=== PATIENT | female | born 1955 | race Caucasian/White ===

== ENCOUNTER → 2020-03-04 10:07 | Outpatient (BNVA) | payer MEDICARE, MEDICAID, SELFPAY | PROVIDERS: PCP Internal Medicine; Visit Provider Anesthesiology | DX: G89.4 Chronic pain syndrome (principal); M47.816 Spondylosis without myelopathy or radiculopathy, lumbar region; M25.562 Pain in left knee; M17.11 Unilateral primary osteoarthritis, right knee; Z96.652 Presence of left artificial knee joint; Z79.891 Long term (current) use of opiate analgesic | CPT/HCPCS: 99213 ==

== ENCOUNTER → 2020-03-31 10:41 | Outpatient (BNVA) | payer MEDICARE, MEDICAID, SELFPAY | PROVIDERS: PCP Internal Medicine; Visit Provider Anesthesiology | DX: G89.4 Chronic pain syndrome (principal); M47.816 Spondylosis without myelopathy or radiculopathy, lumbar region; M25.562 Pain in left knee; Z79.891 Long term (current) use of opiate analgesic; Z96.652 Presence of left artificial knee joint | CPT/HCPCS: 99212 ==

== ENCOUNTER → 2020-04-29 14:56 | Outpatient (BNVA) | payer MEDICARE, MEDICAID, SELFPAY | PROVIDERS: PCP Internal Medicine; Visit Provider Anesthesiology | DX: F11.90 Opioid use, unspecified, uncomplicated (principal); M25.562 Pain in left knee; M47.816 Spondylosis without myelopathy or radiculopathy, lumbar region; G89.4 Chronic pain syndrome; M17.11 Unilateral primary osteoarthritis, right knee; G56.32 Lesion of radial nerve, left upper limb; G56.31 Lesion of radial nerve, right upper limb; Z96.652 Presence of left artificial knee joint; Z79.899 Other long term (current) drug therapy | CPT/HCPCS: 99212 ==

== ENCOUNTER → 2020-06-01 10:09 | Outpatient (BNVA) | payer MEDICARE, MEDICAID, SELFPAY | PROVIDERS: PCP Internal Medicine; Visit Provider Family Medicine Adult Medicine | DX: M17.11 Unilateral primary osteoarthritis, right knee (principal); M47.816 Spondylosis without myelopathy or radiculopathy, lumbar region; Z96.652 Presence of left artificial knee joint | CPT/HCPCS: 99212 ==

== ENCOUNTER → 2020-06-03 15:06 | Outpatient (BNVA) | payer MEDICARE, MEDICAID, SELFPAY | PROVIDERS: PCP Internal Medicine; Visit Provider Anesthesiology | DX: M25.562 Pain in left knee (principal); M17.11 Unilateral primary osteoarthritis, right knee; M47.816 Spondylosis without myelopathy or radiculopathy, lumbar region; G89.4 Chronic pain syndrome; F11.90 Opioid use, unspecified, uncomplicated; Z96.652 Presence of left artificial knee joint | CPT/HCPCS: Q3014 ==

== ENCOUNTER → 2020-06-07 08:22 | Outpatient (BNVA) | payer MEDICARE, MEDICAID, SELFPAY | PROVIDERS: PCP Internal Medicine; Visit Provider Anesthesiology | DX: M17.11 Unilateral primary osteoarthritis, right knee (principal); M47.816 Spondylosis without myelopathy or radiculopathy, lumbar region; M25.562 Pain in left knee; G89.4 Chronic pain syndrome; F11.90 Opioid use, unspecified, uncomplicated; Z96.652 Presence of left artificial knee joint | CPT/HCPCS: Q3014 ==

== ENCOUNTER 2020-06-08 06:14 | Outpatient (REF) | payer MEDICARE, MEDICAID, SELFPAY | END 2020-06-08 06:15 | disposition home or self-care (01) | LOC: HO.RADIR 06:14 | PROVIDERS: Visit Provider Anesthesiology | DX: M25.562 Pain in left knee (principal); M17.11 Unilateral primary osteoarthritis, right knee; M47.816 Spondylosis without myelopathy or radiculopathy, lumbar region; G89.4 Chronic pain syndrome; F11.90 Opioid use, unspecified, uncomplicated; Z96.652 Presence of left artificial knee joint; Z87.891 Personal history of nicotine dependence | CPT/HCPCS: 64447 ==

== ENCOUNTER → 2020-06-14 15:52 | Outpatient (BNVA) | payer MEDICARE, MEDICAID, SELFPAY | PROVIDERS: PCP Internal Medicine; Visit Provider Anesthesiology | DX: M25.562 Pain in left knee (principal); M47.816 Spondylosis without myelopathy or radiculopathy, lumbar region; M17.11 Unilateral primary osteoarthritis, right knee; G89.4 Chronic pain syndrome; F11.90 Opioid use, unspecified, uncomplicated; Z96.652 Presence of left artificial knee joint | CPT/HCPCS: Q3014 ==

== ENCOUNTER 2020-06-29 12:55 | Outpatient (RCR) | payer MEDICARE, MEDICAID, SELFPAY | END 2020-06-30 08:59 | disposition home or self-care (01) | LOC: HO.PAOS 12:55 | PROVIDERS: Visit Provider Counselor Mental Health | DX: F43.20 Adjustment disorder, unspecified (principal) | CPT/HCPCS: 90791 ==

== ENCOUNTER → 2020-07-01 10:41 | Outpatient (BNVA) | payer MEDICARE, MEDICAID, SELFPAY | PROVIDERS: PCP Internal Medicine; Visit Provider Anesthesiology | DX: G89.4 Chronic pain syndrome (principal); M47.816 Spondylosis without myelopathy or radiculopathy, lumbar region; M17.11 Unilateral primary osteoarthritis, right knee; M25.562 Pain in left knee; Z79.891 Long term (current) use of opiate analgesic; Z96.652 Presence of left artificial knee joint | CPT/HCPCS: 99212 ==

== ENCOUNTER → 2020-07-29 16:01 | Outpatient (BNVA) | payer MEDICARE, MEDICAID, SELFPAY | PROVIDERS: PCP Internal Medicine; Visit Provider Anesthesiology | DX: M25.562 Pain in left knee (principal); M47.816 Spondylosis without myelopathy or radiculopathy, lumbar region; G89.4 Chronic pain syndrome; M17.11 Unilateral primary osteoarthritis, right knee; F11.90 Opioid use, unspecified, uncomplicated; Z96.652 Presence of left artificial knee joint; Z79.899 Other long term (current) drug therapy | CPT/HCPCS: 99212 ==

== ENCOUNTER 2020-08-06 10:52 | Day surgery (SDC) | payer MEDICARE, MEDICAID, SELFPAY ==
[2020-08-03 10:10] VITALS: BMI 27.9
--- NOTE | 2020-08-05 10:55 | HO.ANESPROP2 ---
Documented by User: Jennifer Jerez 08/05/20 10:56 HPI - Anesthesia Eval Consult details Narrative: 64yo F for Femoral Nerve Stimulator Trial Asthma exac 07/2020 with prednisone taper finishing 08/02/20 [facility] Active Problems Active Problems: All Active Problems (Updated 08/03/20 @ 10:07 by Irma Hoskins) Radial tunnel syndrome of right upper extremity (Acute) Radial tunnel syndrome of left upper extremity (Acute) Chronic, continuous use of opioids (Acute) Osteoarthritis of right knee (Acute) Chronic pain syndrome (Acute) Spondylosis of lumbar region without myelopathy or radiculopathy (Acute) Pain in left knee (Acute) Status post total knee replacement, left (Acute) Past Medical History Medical History Asthma Chronic pain syndrome Chronic, continuous use of opioids Depression Elevated cholesterol GERD (gastroesophageal reflux disease) Osteoarthritis of right knee Pain in left knee Radial tunnel syndrome of left upper extremity Radial tunnel syndrome of right upper extremity Spondylosis of lumbar region without myelopathy or radiculopathy Surgical History Surgical History History of carpal tunnel surgery Status post total knee replacement, left Social History Social History Household Members: Family Alcohol intake: never Smoking Status: Former smoker Smoking Quit Date: 07/2019 Use of substances other than those prescribed or required for medical reasons: No Advance Directives: No Advance Directives Information Provided: No Advance Directives on File: No Current occupation: Disabled about 5 years due to musculoskeletal pain Meds Allergies Allergy/AdvReac Type Severity Reaction Status Date / Time No Known Allergies Allergy Verified 08/03/20 10:07 Home Medications Medication Instructions Recorded Confirmed Last Taken Type albuterol sulfate 90 mcg/actuation 2 puff PO Q4-6H PRN 03/04/20 08/02/20 08/06/20 History aerosol inhaler montelukast 10 mg tablet 10 mg PO BEDTIME 03/04/20 08/02/20 Unknown History omeprazole 20 mg capsule,delayed 20 mg PO DAILY 03/04/20 08/02/20 08/06/20 History release pravastatin 40 mg tablet 40 mg PO BEDTIME 03/04/20 08/02/20 Unknown History metoprolol tartrate 1 tab PO BID 08/02/20 08/02/20 08/06/20 History nifedipine 1 tab PO DAILY 08/02/20 08/02/20 08/06/20 History fluticasone furoate-vilanterol 1 puff PO DAILY 08/03/20 08/03/20 Unknown History [Breo Ellipta] umeclidinium [Incruse Ellipta] 1 puff PO DAILY 08/03/20 08/03/20 Unknown History Exam Exam Date and Time: August 05, 2020 1055 Height,Weight and Vital Signs: Height 5 ft 1 in Weight 67.132 kg Assessment and Plan Assessment Anesthesia Assessment: Chart Reviewed Documented by User: Chato Santos MD 08/06/20 13:01 [facility] Past Medical History Medical History Asthma Chronic pain syndrome Chronic, continuous use of opioids Depression Elevated cholesterol GERD (gastroesophageal reflux disease) Osteoarthritis of right knee Pain in left knee Radial tunnel syndrome of left upper extremity Radial tunnel syndrome of right upper extremity Spondylosis of lumbar region without myelopathy or radiculopathy Surgical History Surgical History History of carpal tunnel surgery Status post total knee replacement, left Social History Social History Household Members: Family Alcohol intake: never Smoking Status: Former smoker Smoking Quit Date: 07/2019 Use of substances other than those prescribed or required for medical reasons: No Advance Directives: No Advance Directives Information Provided: No Advance Directives on File: No Current occupation: Disabled about 5 years due to musculoskeletal pain Meds Allergies Allergy/AdvReac Type Severity Reaction Status Date / Time No Known Allergies Allergy Verified 08/03/20 10:07 Home Medications Medication Instructions Recorded Confirmed Last Taken Type albuterol sulfate 90 mcg/actuation 2 puff PO Q4-6H PRN 03/04/20 08/02/20 08/06/20 History aerosol inhaler montelukast 10 mg tablet 10 mg PO BEDTIME 03/04/20 08/02/20 Unknown History omeprazole 20 mg capsule,delayed 20 mg PO DAILY 03/04/20 08/02/20 08/06/20 History release pravastatin 40 mg tablet 40 mg PO BEDTIME 03/04/20 08/02/20 Unknown History metoprolol tartrate 1 tab PO BID 08/02/20 08/02/20 08/06/20 History nifedipine 1 tab PO DAILY 08/02/20 08/02/20 08/06/20 History fluticasone furoate-vilanterol 1 puff PO DAILY 08/03/20 08/03/20 Unknown History [Breo Ellipta] umeclidinium [Incruse Ellipta] 1 puff PO DAILY 08/03/20 08/03/20 Unknown History Assessment and Plan Assessment Anesthesia Assessment: Anesthesia Plan Discussed and Chart Reviewed Final Anesthetic Review NPO: Yes ASA Class: III Final Preanesthetic Review: No Changes in Pt Med Stat, Meds/Allgs Chart Reviewed, Consent Obtained/Reviewed and Anes Risks/Benef Reviewed Patient Risk: High Procedure Risk: Low Anesthetic Plan Anesthetic Plan: MAC: Disposition: Standard PACU
[2020-08-06 11:17] VITALS: BP 139/72; PULSE 83; RESP 16; TEMP 36.9; O2SAT 97
[2020-08-06] MEDS: Lactated Ringers 1,000 ML 100 ML IVCONT (11:31)
--- NOTE | 2020-08-06 13:01 | MHC.SHP ---
Pre-Procedural Eval Section A The patient is an INPATIENT: No Changes since office visit: Yes Patient answered all questions The History & Physical has been completed within 30 days and I have reviewed it.: No Section B Chief Complaint: Pain in Left Knee Details of Present Illness: Left knee osteoarthritis Relevant Family History (Specify if Yes): No Relevant Social History: None Present Medications: see Short Stay Collaborative assessment Medical History: Significant History History of Previous Operations: No relevant previous surgery Allergies: Allergies Allergy/AdvReac Type Severity Reaction Status Date / Time No Known Allergies Allergy Verified 08/03/20 10:07 Review of Systems Sugical H&P ROS: Negative: Constitution, Cardiovascular, Respiratory, Neurological, Psychiatric, Hem-Onc, Allergic/Immunologic, Gastrointestinal, Genitourinary, Musculoskeletal, Integumentary, Endocrine and Eyes/Ears/Nose/Throat Exam Surgical H&P Exam: Normal: HEENT, Normal: Heart, Normal: Lungs, Normal: Extremities, Normal: Abdomen, Normal: Skin and Normal: Neurological Plan Diagnosis/Plan: Unchanged I have reviewed the history and physical and performed a pertinent physical examination on my patient. No changes have occurred unless specified.
[2020-08-06 13:54] VITALS: BP 149/85; PULSE 90; RESP 20; TEMP 36.2; O2SAT 98
--- NOTE | 2020-08-06 14:04 | PM.OP ---
Brief Operative Note Date of Service: 08/06/20 Pre-op diagnosis: Left knee pain, status post total knee replacement left. Post-op diagnosis: same Procedure: Left femoral nerve stimulation stim wave Implants: None permanent Surgeon: Quan Rae MD Anesthesia: MAC Estimated blood loss (mL): 0 Condition: stable Disposition: PACU
--- NOTE | 2020-08-06 14:08 | PM.OP ---
Brief Operative Note Date of Service: 08/06/20 Pre-op diagnosis: Left knee pain, status post total knee replacement left Post-op diagnosis: same Procedure: Left femoral nerve stimulation trial stim wave Implants: None permanent Surgeon: Quan Rae MD Anesthesia: MAC Estimated blood loss (mL): 0 Condition: stable Disposition: PACU
[2020-08-06 14:09] VITALS: BP 166/85; PULSE 86; RESP 16; TEMP 36.2; O2SAT 98
--- NOTE | 2020-08-06 16:16 | P.OP_ITS ---
Operative Note Operative Note Date of Service: 08/06/20 Narrative: Genie is very pleasant 64 years old female who is suffering from consequences of left total knee replacement with intractable pain in the projection of the left knee. Today she came to the operating room for trial of peripheral nerve-left nerve femoral nerve stimulation stim wave technology in the attempt to alleviate her left knee pain. The informed consent was obtained before procedure delineating the risks of ble eding, epidural hematoma, epidural abscess, other infection, osteomyelitis, damage to the peripheral nerves, risk of paralysis and risk of loss of sensation. After that the patient came to the operating room, SHE was positioned supine on the operating table with elevation of the left hip, [place] [employer] monitors were applied. The patient was sedated. Time-out was performed delineating correct patient's name and date of , site, side of the procedure, need of antibiotics, risk of fire. Before the procedure the patient received 2 GRAMS of cefazolin. The patient's left groin was prepped with ChloraPrep and draped with full body drape. Sterilely draped ultrasound probe was brought on the operating field and picture of femoral artery a and femoral nerve were delineated on the screen. 5 cm below the level of the ultrasound probe in the left groin the local anesthetic lidocaine mixture with bupivacaine was injected into the skin and subcutaneous tissue in the direction to were the femoral nerve. 18 gauge curved introducer needle was inserted through the skin and advanced to the s perpendicular to the ultrasound plain fashion to word the femoral artery and femoral nerve. When the tip of the needle entered the space between femoral artery and femoral nerve the needle stylet was removed and stimulating lead with electrodes array was inserted into the needle and advanced into the for mention position. The stylette of the epidural lead was gently removed from the epidural lead and radio antenna was inserted into the lead until resistance was felt. The testing device was sterilely draped and brought over the operating field. It was positioned on the outside end of the electrode. The area of the skin surrounding the electrode was smeared with Mastisol, and the electrode was fix it to the skin using long Steri-Strips. Upon completion of the procedure sterile dressing was applied to the area of injections, the electrode array and the area of the injections was taped to the skin. The stimulating antenna was applied on top of the area of the dressing to correspond to the financial quantitative analyst electrodes of the wire device. Upon completion of the procedure patient was awaken she was taking outside of the operating room to recovery room where she recovered uneventfully. She went home without immediate complications. In the PACU she was trying the stimulation and she felt stimulating action of the electrode in her femoral nerve. The amplitude of the stimulation was few milliamp tears.
== END 2020-08-06 14:55 | disposition home or self-care (01) ==
PROVIDERS: PCP Internal Medicine; Visit Provider Anesthesiology
PROC: (CPT 64555; principal; 2020-08-06 12:20)
DX: T84.84XA Pain due to internal orthopedic prosthetic devices, implants and grafts, initial encounter (principal); M25.562 Pain in left knee; Z96.652 Presence of left artificial knee joint; Y83.8 Other surgical procedures as the cause of abnormal reaction of the patient, or of later complication, without mention of misadventure at the time of the procedure; Y92.9 Unspecified place or not applicable
CPT/HCPCS: 64555; C1778; J0690

== ENCOUNTER → 2020-08-12 13:44 | Outpatient (BNVA) | payer MEDICARE, MEDICAID, SELFPAY | PROVIDERS: PCP Internal Medicine; Visit Provider Anesthesiology | DX: M25.561 Pain in right knee (principal); Z96.652 Presence of left artificial knee joint; M47.816 Spondylosis without myelopathy or radiculopathy, lumbar region; M17.11 Unilateral primary osteoarthritis, right knee; G89.4 Chronic pain syndrome; F11.90 Opioid use, unspecified, uncomplicated; Z79.899 Other long term (current) drug therapy | CPT/HCPCS: 99212 ==

== ENCOUNTER → 2020-08-30 10:05 | Outpatient (BNVA) | payer MEDICARE, MEDICAID, SELFPAY | PROVIDERS: PCP Internal Medicine; Visit Provider Anesthesiology | DX: M25.562 Pain in left knee (principal); M47.816 Spondylosis without myelopathy or radiculopathy, lumbar region; M17.11 Unilateral primary osteoarthritis, right knee; G89.4 Chronic pain syndrome; F11.90 Opioid use, unspecified, uncomplicated; G90.522 Complex regional pain syndrome I of left lower limb; Z96.652 Presence of left artificial knee joint | CPT/HCPCS: 99212 ==

== ENCOUNTER → 2020-09-27 14:26 | Outpatient (BNVA) | payer MEDICARE, MEDICAID, SELFPAY | PROVIDERS: PCP Internal Medicine; Visit Provider Anesthesiology | DX: M25.562 Pain in left knee (principal); M47.816 Spondylosis without myelopathy or radiculopathy, lumbar region; M17.11 Unilateral primary osteoarthritis, right knee; G89.4 Chronic pain syndrome; F11.90 Opioid use, unspecified, uncomplicated; G90.522 Complex regional pain syndrome I of left lower limb; Z96.652 Presence of left artificial knee joint | CPT/HCPCS: 99212 ==

== ENCOUNTER → 2020-10-27 09:11 | Outpatient (BNVA) | payer MEDICARE, MEDICAID, SELFPAY | PROVIDERS: PCP Internal Medicine; Visit Provider Anesthesiology | DX: M47.816 Spondylosis without myelopathy or radiculopathy, lumbar region (principal); M25.562 Pain in left knee; G89.4 Chronic pain syndrome; M17.11 Unilateral primary osteoarthritis, right knee; F11.90 Opioid use, unspecified, uncomplicated; G90.522 Complex regional pain syndrome I of left lower limb; Z79.899 Other long term (current) drug therapy | CPT/HCPCS: 99212 ==

== ENCOUNTER 2021-04-08 09:05 | Day surgery (SDC) | payer MEDICARE, MEDICAID, SELFPAY ==
[2021-03-31 16:03] VITALS: BMI 27.8
--- NOTE | ~2021-04-08 | FL_ITS ---
EXAMINATION: XR FLUOROSCOPY WITH IMAGES CLINICAL INFORMATION: Spinal stimulator trial COMPARISON: None. TECHNIQUE: Fluoroscopy performed by Dr. Quan Rae. Fluoroscopy time: 5.1 minutes DAP: 30 mGycm2 Images: 2 FINDINGS: First image demonstrates a spinal stimulator projecting over the lower thoracic spinal canal. The second image demonstrates a spinal stimulator projecting over the lower lumbar spinal canal. FL/FL guidance in OR IMPRESSION: Fluoroscopy guidance for spinal stimulator trial.
[2021-04-08 09:14] VITALS: BP 144/74; PULSE 85; RESP 16; TEMP 36.4; O2SAT 97
--- NOTE | 2021-04-08 09:15 | P.CONAN_ITS ---
[facility] Active Problems Active Problems: All Active Problems (Updated 12/17/20 @ 11:51 by Fiona puga, RN) Complex regional pain syndrome i of left lower limb (Acute) Radial tunnel syndrome of right upper extremity (Acute) Radial tunnel syndrome of left upper extremity (Acute) Chronic, continuous use of opioids (Acute) Osteoarthritis of right knee (Acute) Chronic pain syndrome (Acute) Spondylosis of lumbar region without myelopathy or radiculopathy (Acute) Pain in left knee (Acute) Status post total knee replacement, left (Acute) Past Medical History Medical History Asthma Chronic pain syndrome Chronic, continuous use of opioids Complex regional pain syndrome i of left lower limb COPD (chronic obstructive pulmonary disease) COVID-19 vaccine series completed Depression Elevated cholesterol GERD (gastroesophageal reflux disease) On beta eulalio at home Osteoarthritis of right knee Pain in left knee Radial tunnel syndrome of left upper extremity Radial tunnel syndrome of right upper extremity Spondylosis of lumbar region without myelopathy or radiculopathy Surgical History Surgical History History of carpal tunnel surgery Status post total knee replacement, left Social History Social History Household Members: Family Household Members Other:: single lives with daughter and grandaughter Are you a primary palliative care coordinator to a significant other at home: No Do you presently have visiting nurse or other home services: Yes ([employer]) Alcohol intake: never Patient Tobacco Use Status: Former Tobacco user Quit Date: 10/2020 Tobacco use type: Cigarette Cigarette Packs Per Day: 1 Cigarettes Per Day: 20.0 Years Smoked: > 25 Use of substances other than those prescribed or required for medical reasons: No Have you been hit, kicked, punched, or otherwise hurt by someone within the past year? If so, by whom?: No Are you DNR?: No Advance Directives: No Advance Directives Information Provided: No Advance Directives on File: No Recently lost weight without trying: No Eating poorly because of decreased appetite: No Nutrition Risks: No Nutritional Risk Patient : No Current occupation: Disabled about 5 years due to musculoskeletal pain Meds Allergies Allergy/AdvReac Type Severity Reaction Status Date / Time No Known Allergies Allergy Verified 04/08/21 09:10 Active Medications: Current Medications Cefazolin Sodium/Dextrose (Ancef) 2 gm in 50 mls @ 100 mls/hr IV PREOP ONE Stop: 04/08/21 09:33 Home Medications Medication Instructions Recorded Confirmed Last Taken Type albuterol sulfate 90 mcg/actuation 2 puff PO Q4-6H PRN 03/04/20 03/31/21 04/08/21 06:20 History aerosol inhaler montelukast 10 mg tablet 10 mg PO BEDTIME 03/04/20 03/31/21 Unknown History omeprazole 20 mg capsule,delayed 20 mg PO DAILY 03/04/20 03/31/21 04/08/21 06:20 History release pravastatin 40 mg tablet 40 mg PO BEDTIME 03/04/20 03/31/21 Unknown History metoprolol tartrate 25 mg tablet 1 tab PO BID 08/02/20 03/31/21 04/08/21 06:20 History nifedipine 30 mg tablet,extended 1 tab PO DAILY 08/02/20 12/17/20 04/08/21 06:20 History release fluticasone furoate 200 1 puff PO DAILY 08/03/20 03/31/21 Unknown History mcg-vilanterol 25 mcg/dose inhalation powder (Breo Ellipta) umeclidinium 62.5 mcg/actuation 1 puff PO DAILY 08/03/20 03/31/21 04/08/21 06:20 History blister powder for inhalation (Incruse Ellipta) aspirin 81 mg tablet,delayed 1 tab PO DAILY 12/17/20 04/08/21 04/06/21 History release budesonide 0.5 mg/2 mL suspension 1 vial INHALATION BID 12/17/20 03/31/21 Unknown History for nebulization docusate sodium 100 mg capsule 1 cap PO BID 12/17/20 03/31/21 Unknown History (DOK) roflumilast 500 mcg tablet 1 tab PO DAILY 12/17/20 03/31/21 Unknown History (Daliresp) amitriptyline 25 mg tablet 1 tab PO BEDTIME 03/31/21 03/31/21 Unknown History Exam Exam Date and Time: April 08, 2021 0915 Height,Weight and Vital Signs: Height 5 ft 1 in Weight 67 kg Airway Mallampati Class: II TM Dist: >3cm Neck ROM: Full Denture: Upper and Lower
--- NOTE | 2021-04-08 09:28 | PC.NURSE ---
Patients lung sounds diminished with inspiratory and expiratory faint wheezing present throughout. Patient is a some day cigarette smoker (last 04/06) and has a diagnosis of asthma. Dr. Hill aware. Patient to take 3 puffs of albuterol inhaler (brought from home) right before being brought into OR. No other orders. Okay to proceed with surgery.
[2021-04-08] MEDS: Lactated Ringers 1,000 ML 100 ML IVCONT (09:35)
[2021-04-08 11:35] VITALS: BP 129/74; PULSE 97; RESP 18; TEMP 36.9; O2SAT 95
--- NOTE | 2021-04-08 11:39 | MHC.SHP ---
Pre-Procedural Eval Section A Date of Service: 04/08/21 Section B Chief Complaint: Spondylosis of lumbar spine Details of Present Illness: As above, left knee osteoarthritis. Relevant Family History (Specify if Yes): No Relevant Social History: None Present Medications: see Short Stay Collaborative assessment Medical History: No relevant PMH History of Previous Operations: No relevant previous surgery Allergies: Allergies Allergy/AdvReac Type Severity Reaction Status Date / Time No Known Allergies Allergy Verified 04/08/21 09:10 Review of Systems Sugical H&P ROS: Negative: Constitution, Cardiovascular, Respiratory, Neurological, Psychiatric, Hem-Onc, Allergic/Immunologic, Gastrointestinal, Genitourinary, Musculoskeletal, Integumentary, Endocrine and Eyes/Ears/Nose/Throat Exam Surgical H&P Exam: Normal: HEENT, Normal: Heart, Normal: Lungs, Normal: Extremities, Normal: Abdomen, Normal: Skin and Normal: Neurological Plan Diagnosis/Plan: Unchanged I have reviewed the history and physical and performed a pertinent physical examination on my patient. No changes have occurred unless specified.
--- NOTE | 2021-04-08 11:41 | P.BOP_ITS ---
Brief Operative Note Date of Service: 04/08/21 Pre-op diagnosis: Spondylosis lumbar spine, left knee osteoarthritis. Chronic pain syndrome. Post-op diagnosis: same Procedure: Trial of [employer] SCS. Implants: None per Surgeon: Quan Rae MD Anesthesia: MAC Was an [employer] Engineer Sergeant used for this Procedure?: No Estimated blood loss (mL): 3 Pathology: none sent Condition: stable Disposition: PACU
[2021-04-08 11:50] VITALS: BP 140/68; PULSE 92; RESP 18; O2SAT 97
[2021-04-08 12:05] VITALS: BP 148/82; PULSE 90; RESP 18; O2SAT 98
[2021-04-08 12:16] VITALS: TEMP 36.7
--- NOTE | 2021-04-08 13:15 | P.OP_ITS ---
Operative Note Operative Note Date of Service: 04/08/21 Narrative: Genie is 65 years old female who came today into the operating room for trial of spinal cord stimulator [employer] for the treatment of low back pain secondary to spondylosis and scoliosis of lumbar spine as well as left knee pain secondary to osteoarthritis. Preoperatively patient received clindamycin 900 mg 30 minutes before the procedure. After obtaining informed consent the patient was brought to the operating room, he was positioned prone on operating table, [place] [employer] monitors were applied and patient was deeply sedated.? ?Time-out was performed delineating correct site, side, the nature of the procedure, patient's allergy, preoperative antibiotic if needed.? All operating room staff was participating in OR time-out procedure. Patient's entire back was prepped with DuraPrep twice and draped with full body fenestrated drape.? Sterilely draped C-arm was brought over operating field and square picture of T11,T12, L1 L2 vertebrae as were demonstrated on the screen.? Attention FIRST? was concentrated on the left L1-L2 epidural interspace.? right pedicle center of the L3 vertebra was found on the skin using C-arm.? This location was injected with mixture of lidocaine 2% and Marcaine 0.5% 5 cc.? After that 11 blade was used to make a cintia on the skin.? 10 cm 14 gauge? introducer epidural needle was inserted through the cintia and advanced to?L1-L2 epidural interspace.? The? advancement of the needle was performed on anterior posterior and lateral views.? Guitar wire and loss of resistance technique were used to locate epidural space.? When guitar wire was spread in the epidural fashion, epidural lead was inserted through the skin and it was advanced to bottom of T7 position strictly at MIDLINE.? That was 16 contacts epidural lead. After that location of the projection of the left sacral bone was found on the skin using C-arm.? This location was injected with mixture of lidocaine 2% and Marcaine 0.5% 5 cc.? After that 11 blade was used to make a cintia on the skin.? 10 cm 14 gauge curved introducer epidural needle was inserted through the cintia and advanced to L5-S1 epidural interspace.? The advancement of the needle was performed on anterior posterior and lateral views.? Guitar wire and loss of resistance technique were used to locate epidural space.? When guitar wire was spread in the epidural fashion, epidural lead was inserted through the needle an d advanced to the t left lateral gutter at the projection of L3-L4 and L4-5 foramina. Impedance was checked and was satisfactory .? The patient was awake at this moment and epidural leads were connected to testing device.? Testing demonstrated pain of the patient corresponding to the stimulation pattern: The thoracic lead demonstrated stimulation in the lower back, the lumbar gutter lead demonstrated stimulation in the area of the patient's knee. After that the position of epidural leads was found to be satisfactory on the anterior posterior and lateral views.? The needles were carefully withdrawn and care was taken to keep the epidural leads in place. Anchoring devices were dislodged into the epidural leads and advanced to the level of the skin. There were sutured to the skin with 2 silk 0 sutures for each anchoring device. After that the fixating screws on on currently was were tied down. After that sterile dressing was applied and epidural leads were connected to testing device.? At this moment the patient was awaken taking outside of the operating room to PACU where she recovered uneventfully.?
--- NOTE | 2021-04-08 13:20 | PC.NURSE ---
Discharge instructions given by Tamra Leon RN
--- NOTE | 2021-04-08 13:23 | PC.NURSE ---
Electronic script for antibiotic sent from MD office, patient aware
== END 2021-04-08 13:05 | disposition home or self-care (01) ==
PROVIDERS: PCP Internal Medicine; Visit Provider Anesthesiology
PROC: (CPT 63650; principal; 2021-04-08 10:40)
DX: M47.816 Spondylosis without myelopathy or radiculopathy, lumbar region (principal); M17.12 Unilateral primary osteoarthritis, left knee; G90.522 Complex regional pain syndrome I of left lower limb; M25.562 Pain in left knee; G89.4 Chronic pain syndrome; M17.11 Unilateral primary osteoarthritis, right knee; Z96.652 Presence of left artificial knee joint; F11.90 Opioid use, unspecified, uncomplicated
CPT/HCPCS: 63650 ×2; C1713; C1778; J0690; J2250; J3010

== ENCOUNTER → 2021-04-14 10:22 | Outpatient (BNVA) | payer MEDICARE, MEDICAID, SELFPAY | PROVIDERS: PCP Internal Medicine; Visit Provider Anesthesiology | DX: M25.562 Pain in left knee (principal); M47.816 Spondylosis without myelopathy or radiculopathy, lumbar region; M17.11 Unilateral primary osteoarthritis, right knee; G89.4 Chronic pain syndrome; G90.522 Complex regional pain syndrome I of left lower limb; F11.90 Opioid use, unspecified, uncomplicated; Z96.652 Presence of left artificial knee joint | CPT/HCPCS: 99212 ==

== ENCOUNTER 2021-07-07 10:42 | Day surgery (SDC) | payer MEDICARE, MEDICAID, SELFPAY ==
[2021-06-30 15:08] VITALS: BMI 29.5
--- NOTE | 2021-07-06 10:05 | P.CONAN_ITS ---
Documented by User: Jennifer Jerez NP 07/06/21 10:07 HPI - Anesthesia Eval Consult details Narrative: 65yo F for Lumbar Spinal Cord Stimulation Implant [facility] Active Problems Active Problems: All Active Problems (Updated 06/30/21 @ 15:02 by Yue Neal, JIMMIE) Complex regional pain syndrome i of left lower limb (Acute) Radial tunnel syndrome of right upper extremity (Acute) Radial tunnel syndrome of left upper extremity (Acute) Chronic, continuous use of opioids (Acute) Osteoarthritis of right knee (Acute) Chronic pain syndrome (Acute) Spondylosis of lumbar region without myelopathy or radiculopathy (Acute) Pain in left knee (Acute) Status post total knee replacement, left (Acute) Past Medical History Medical History (Updated 06/30/21 @ 15:02 by Yue Neal RN) Asthma Chronic pain syndrome Chronic, continuous use of opioids Complex regional pain syndrome i of left lower limb COPD (chronic obstructive pulmonary disease) COVID-19 vaccine series completed Depression Elevated cholesterol GERD (gastroesophageal reflux disease) On beta eulalio at home Osteoarthritis of right knee Pain in left knee Radial tunnel syndrome of left upper extremity Radial tunnel syndrome of right upper extremity Spondylosis of lumbar region without myelopathy or radiculopathy Status post insertion of nerve stimulator Surgical History Surgical History History of carpal tunnel surgery Status post total knee replacement, left Social History Social History Household Members: Family Household Members Other:: single lives with daughter and grandaughter Are you a primary healthcare prof to a significant other at home: No Do you 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 have 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) Alcohol intake: never Patient Tobacco Use Status: Former Tobacco user Quit Date: 10/2020 Tobacco use type: Cigarette Cigarette Packs Per Day: 1 Cigarettes Per Day: 20.0 Years Smoked: >25 Use of substances other than those prescribed or required for medical reasons: No Are you DNR?: No Advance Directives: No Advance Directives Information Provided: Yes Advance Directives on File: No Recently lost weight without trying: No Eating poorly because of decreased appetite: No Nutrition Risks: No Nutritional Risk Current occupation: Disabled about 5 years due to musculoskeletal pain Meds Allergies Allergy/AdvReac Type Severity Reaction Status Date / Time No Known Allergies Allergy Verified 07/07/21 11:04 Home Medications Medication Instructions Recorded Confirmed Last Taken Type albuterol sulfate 90 mcg/actuation 2 puff PO Q4-6H PRN 03/04/20 06/30/21 07/07/21 09:00 History aerosol inhaler montelukast 10 mg tablet 10 mg PO BEDTIME 03/04/20 06/30/21 Unknown History omeprazole 20 mg capsule,delayed 20 mg PO DAILY 03/04/20 06/30/21 07/07/21 09:00 History release pravastatin 40 mg tablet 40 mg PO BEDTIME 03/04/20 06/30/21 Unknown History metoprolol tartrate 25 mg tablet 1 tab PO BID 08/02/20 06/30/21 07/07/21 09:00 History nifedipine 30 mg tablet,extended 1 tab PO DAILY 08/02/20 06/30/21 07/07/21 09:00 History release fluticasone furoate 200 1 puff PO DAILY 08/03/20 06/30/21 Unknown History mcg-vilanterol 25 mcg/dose inhalation powder (Breo Ellipta) umeclidinium 62.5 mcg/actuation 1 puff PO DAILY 08/03/20 06/30/21 04/08/21 06:20 History blister powder for inhalation (Incruse Ellipta) aspirin 81 mg tablet,delayed 1 tab PO DAILY 12/17/20 07/07/21 06/30/21 History release budesonide 0.5 mg/2 mL suspension 1 vial INHALATION BID 12/17/20 06/30/21 07/07/21 09:00 History for nebulization docusate sodium 100 mg capsule 1 cap PO BID 12/17/20 06/30/21 Unknown History (DOK) roflumilast 500 mcg tablet 1 tab PO DAILY 12/17/20 06/30/21 Unknown History (Daliresp) amitriptyline 25 mg tablet 1 tab PO BEDTIME 03/31/21 06/30/21 Unknown History Exam Exam Date and Time: July 06, 2021 1005 Height,Weight and Vital Signs: Height 5 ft 1 in Weight 70.874 kg Assessment and Plan Assessment Anesthesia Assessment: Chart Reviewed Documented by User: Dylon Orozco MD 07/07/21 12:46 [facility] Past Medical History Medical History (Updated 06/30/21 @ 15:02 by Yue Neal RN) Asthma Chronic pain syndrome Chronic, continuous use of opioids Complex regional pain syndrome i of left lower limb COPD (chronic obstructive pulmonary disease) COVID-19 vaccine series completed Depression Elevated cholesterol GERD (gastroesophageal reflux disease) On beta eulalio at home Osteoarthritis of right knee Pain in left knee Radial tunnel syndrome of left upper extremity Radial tunnel syndrome of right upper extremity Spondylosis of lumbar region without myelopathy or radiculopathy Status post insertion of nerve stimulator Family History Family history of problems with anesthesia: No Surgical History Surgical History History of carpal tunnel surgery Status post total knee replacement, left History of Problems with Anesthesia: No Social History Social History Household Members: Family Household Members Other:: single lives with daughter and grandaughter Are you a primary healthcare prof to a significant other at home: No Do you 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 have 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) Alcohol intake: never Patient Tobacco Use Status: Former Tobacco user Quit Date: 10/2020 Tobacco use type: Cigarette Cigarette Packs Per Day: 1 Cigarettes Per Day: 20.0 Years Smoked: >25 Use of substances other than those prescribed or required for medical reasons: No Are you DNR?: No Advance Directives: No Advance Directives Information Provided: Yes Advance Directives on File: No Recently lost weight without trying: No Eating poorly because of decreased appetite: No Nutrition Risks: No Nutritional Risk Current occupation: Disabled about 5 years due to musculoskeletal pain Meds Allergies Allergy/AdvReac Type Severity Reaction Status Date / Time No Known Allergies Allergy Verified 07/07/21 11:04 Home Medications Medication Instructions Recorded Confirmed Last Taken Type albuterol sulfate 90 mcg/actuation 2 puff PO Q4-6H PRN 03/04/20 06/30/21 07/07/21 09:00 History aerosol inhaler montelukast 10 mg tablet 10 mg PO BEDTIME 03/04/20 06/30/21 Unknown History omeprazole 20 mg capsule,delayed 20 mg PO DAILY 03/04/20 06/30/21 07/07/21 09:00 History release pravastatin 40 mg tablet 40 mg PO BEDTIME 03/04/20 06/30/21 Unknown History metoprolol tartrate 25 mg tablet 1 tab PO BID 08/02/20 06/30/21 07/07/21 09:00 History nifedipine 30 mg tablet,extended 1 tab PO DAILY 08/02/20 06/30/21 07/07/21 09:00 History release fluticasone furoate 200 1 puff PO DAILY 08/03/20 06/30/21 Unknown History mcg-vilanterol 25 mcg/dose inhalation powder (Breo Ellipta) umeclidinium 62.5 mcg/actuation 1 puff PO DAILY 08/03/20 06/30/21 04/08/21 06:20 History blister powder for inhalation (Incruse Ellipta) aspirin 81 mg tablet,delayed 1 tab PO DAILY 12/17/20 07/07/21 06/30/21 History release budesonide 0.5 mg/2 mL suspension 1 vial INHALATION BID 12/17/20 06/30/21 07/07/21 09:00 History for nebulization docusate sodium 100 mg capsule 1 cap PO BID 12/17/20 06/30/21 Unknown History (DOK) roflumilast 500 mcg tablet 1 tab PO DAILY 12/17/20 06/30/21 Unknown History (Daliresp) amitriptyline 25 mg tablet 1 tab PO BEDTIME 03/31/21 06/30/21 Unknown History Exam Airway Mallampati Class: II TM Dist: >3cm Neck ROM: Full Denture: Upper and Lower Loose/Missing/Broken Teeth: Yes Heart: [id number] Lungs: cta b/l Assessment and Plan Assessment Anesthesia Assessment: Anesthesia Plan Discussed Final Anesthetic Review Family History of Problems with Anesthesia: No History of Problems with Anesthesia: No NPO: Yes ASA Class: III Final Preanesthetic Review: No Changes in Pt Med Stat, Meds/Allgs Chart Reviewed, Consent Obtained/Reviewed and Anes Risks/Benef Reviewed Patient Risk: Intermediate Procedure Risk: Intermediate Assessment/Block/Sedation in SS: Assess/Block/Sedation-SS Anesthetic Plan Anesthetic Plan: MAC: and Agree w/ Assess. and Plan Disposition: Standard PACU
[2021-07-07 11:10] VITALS: BP 176/85; PULSE 79; RESP 16; TEMP 36.3; O2SAT 97
[2021-07-07] MEDS: Lactated Ringers 1,000 ML 100 ML IVCONT (11:24)
--- NOTE | 2021-07-07 12:06 | MHC.SHP ---
Pre-Procedural Eval Section A Date of Service: 07/07/21 The patient is an INPATIENT: No Changes since office visit: Yes Patient answered all questions The History & Physical has been completed within 30 days and I have reviewed it.: No Section B Chief Complaint: chronic pain syndrome Details of Present Illness: as above Relevant Family History (Specify if Yes): No Relevant Social History: None Present Medications: see Short Stay Collaborative assessment Medical History: No relevant PMH History of Previous Operations: Relevant previous surgery/procedure and date(s) Allergies: Allergies Allergy/AdvReac Type Severity Reaction Status Date / Time No Known Allergies Allergy Verified 07/07/21 11:04 Review of Systems Sugical H&P ROS: Negative: Constitution, Cardiovascular, Respiratory, Neurological, Psychiatric, Hem-Onc, Allergic/Immunologic, Gastrointestinal, Genitourinary, Musculoskeletal, Integumentary, Endocrine and Eyes/Ears/Nose/Throat Exam Surgical H&P Exam: Normal: HEENT, Normal: Heart, Normal: Lungs, Normal: Extremities, Normal: Abdomen, Normal: Skin and Normal: Neurological Plan Diagnosis/Plan: Unchanged I have reviewed the history and physical and performed a pertinent physical examination on my patient. No changes have occurred unless specified.
--- NOTE | 2021-07-07 12:49 | HO.ANESPROP2 ---
HPI - Anesthesia Eval Consult details Narrative: 65 F for spinal cord stimulator PMFSH Active Problems Active Problems: All Active Problems (Updated 06/30/21 @ 15:02 by Yue Neal RN) Complex regional pain syndrome i of left lower limb (Acute) Radial tunnel syndrome of right upper extremity (Acute) Radial tunnel syndrome of left upper extremity (Acute) Chronic, continuous use of opioids (Acute) Osteoarthritis of right knee (Acute) Chronic pain syndrome (Acute) Spondylosis of lumbar region without myelopathy or radiculopathy (Acute) Pain in left knee (Acute) Status post total knee replacement, left (Acute) Past Medical History Medical History (Updated 06/30/21 @ 15:02 by Yue Neal RN) Asthma Chronic pain syndrome Chronic, continuous use of opioids Complex regional pain syndrome i of left lower limb COPD (chronic obstructive pulmonary disease) COVID-19 vaccine series completed Depression Elevated cholesterol GERD (gastroesophageal reflux disease) On beta eulalio at home Osteoarthritis of right knee Pain in left knee Radial tunnel syndrome of left upper extremity Radial tunnel syndrome of right upper extremity Spondylosis of lumbar region without myelopathy or radiculopathy Status post insertion of nerve stimulator Family History Family history of problems with anesthesia: No Surgical History Surgical History History of carpal tunnel surgery Status post total knee replacement, left History of Problems with Anesthesia: No Social History Social History Household Members: Family Household Members Other:: single lives with daughter and grandaughter Are you a primary technical healthcare consultant to a significant other at home: No 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) Alcohol intake: never Patient Tobacco Use Status: Former Tobacco user Quit Date: 10/2020 Tobacco use type: Cigarette Cigarette Packs Per Day: 1 Cigarettes Per Day: 20.0 Years Smoked: >25 Use of substances other than those prescribed or required for medical reasons: No Are you DNR?: No Advance Directives: No Advance Directives Information Provided: Yes Advance Directives on File: No Recently lost weight without trying: No Eating poorly because of decreased appetite: No Nutrition Risks: No Nutritional Risk Current occupation: Disabled about 5 years due to musculoskeletal pain Meds Allergies Allergy/AdvReac Type Severity Reaction Status Date / Time No Known Allergies Allergy Verified 07/07/21 11:04 Active Medications: Current Medications Acetaminophen (Acetaminophen 325 Mg Tablet) 650 mg PO ONCE PRN PRN Reason: Pain, Mild (Pain Scale 1-3) Albuterol Sulfate (Albuterol Sulfate (0.083%) 2.5 Mg/3 Ml Vial.Neb) 2.5 mg INHALE ONCE PRN PRN Reason: Shortness of Breath/Wheezing Fentanyl (Fentanyl Citrate/Pf 100 Mcg/2 Ml Vial) 50 mcg IVPUSH Q5M PRN; Protocol PRN Reason: Pain, Severe (Pain Scale 7-10) Lactated Ringer's (Lr) 1,000 mls @ 100 mls/hr IVCONT .Q10H BRAD Last Admin: 07/07/21 11:24 Dose: 100 mls/hr Documented by: Promethazine HCl 6.25 mg/ (Sodium Chloride) 50.25 mls @ 201 mls/hr IV ONCE PRN PRN Reason: Nausea and Vomiting Ondansetron HCl (Ondansetron Hcl 4 Mg/2 Ml Vial) 4 mg IVPUSH ONCE PRN PRN Reason: Nausea and Vomiting Oxycodone HCl (Oxycodone Hcl Immed Release 5 Mg Tablet) 10 mg PO ONCE PRN PRN Reason: Pain, Severe (Pain Scale 7-10) Home Medications Medication Instructions Recorded Confirmed Last Taken Type albuterol sulfate 90 mcg/actuation 2 puff PO Q4-6H PRN 03/04/20 06/30/21 07/07/21 09:00 History aerosol inhaler montelukast 10 mg tablet 10 mg PO BEDTIME 03/04/20 06/30/21 Unknown History omeprazole 20 mg capsule,delayed 20 mg PO DAILY 03/04/20 06/30/21 07/07/21 09:00 History release pravastatin 40 mg tablet 40 mg PO BEDTIME 03/04/20 06/30/21 Unknown History metoprolol tartrate 25 mg tablet 1 tab PO BID 08/02/20 06/30/21 07/07/21 09:00 History nifedipine 30 mg tablet,extended 1 tab PO DAILY 08/02/20 06/30/21 07/07/21 09:00 History release fluticasone furoate 200 1 puff PO DAILY 08/03/20 06/30/21 Unknown History mcg-vilanterol 25 mcg/dose inhalation powder (Breo Ellipta) umeclidinium 62.5 mcg/actuation 1 puff PO DAILY 08/03/20 06/30/21 04/08/21 06:20 History blister powder for inhalation (Incruse Ellipta) aspirin 81 mg tablet,delayed 1 tab PO DAILY 12/17/20 07/07/21 06/30/21 History release budesonide 0.5 mg/2 mL suspension 1 vial INHALATION BID 12/17/20 06/30/21 07/07/21 09:00 History for nebulization docusate sodium 100 mg capsule 1 cap PO BID 12/17/20 06/30/21 Unknown History (DOK) roflumilast 500 mcg tablet 1 tab PO DAILY 12/17/20 06/30/21 Unknown History (Daliresp) amitriptyline 25 mg tablet 1 tab PO BEDTIME 03/31/21 06/30/21 Unknown History Exam Exam Date and Time: July 07, 2021 1249 Height,Weight and Vital Signs: Height 5 ft 1 in Weight 70.874 kg Last Vital Signs Temp 97.4 F 07/07/21 11:10 Pulse 79 07/07/21 11:10 Resp 16 07/07/21 11:10 BP 176/85 H 07/07/21 11:10 Pulse Ox 97 07/07/21 11:10 Airway Mallampati Class: I Denture: Upper Assessment and Plan Final Anesthetic Review Family History of Problems with Anesthesia: No History of Problems with Anesthesia: No
--- NOTE | 2021-07-07 13:00 | W.PM.OPN ---
Operative Note Operative Note Date of Service: 07/07/21 Narrative: Genie is a very pleasant 65 y.o. femaile who came today the operating room for the implant of [employer] spinal cord stimulator for the treatment of lower back pain with radiation to the Right lower extremity as well Complex regional pain syndrome of the left lower extremity.. After obtaining informed consent patient was brought to the operating room, he was positioned supine on the stretcher, [employer] monitors were applied and patient was Turned prone on the operating table. Minimal sedation was provided by Anesthesia during which the patient started to cough with copious secretions coming out of her mouth and her nose. she never aspirated but she was massive leave wheezing on auscultation bilaterally. This patient has COPD probably is out of control. This is elective procedure and it can be done after patient will improve. 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
[2021-07-07 14:02] VITALS: BP 170/93; PULSE 102; RESP 16; O2SAT 94
[2021-07-07 14:05] VITALS: BP 155/91; PULSE 110; RESP 16; TEMP 36.4; O2SAT 93
[2021-07-07 14:17] VITALS: BP 165/94; PULSE 103; RESP 16; O2SAT 96
== END 2021-07-07 15:15 | disposition home or self-care (01) ==
PROVIDERS: PCP Internal Medicine; Visit Provider Anesthesiology
PROC: (CPT 63685; principal; 2021-07-07 12:20)
DX: T88.59XA Other complications of anesthesia, initial encounter (principal); T41.295A Adverse effect of other general anesthetics, initial encounter; R06.2 Wheezing; R05.8 Other specified cough; Y65.8 Other specified misadventures during surgical and medical care; Y70.0 Diagnostic and monitoring anesthesiology devices associated with adverse incidents; Y92.234 Operating room of hospital as the place of occurrence of the external cause; J44.9 Chronic obstructive pulmonary disease, unspecified; G89.4 Chronic pain syndrome; M47.816 Spondylosis without myelopathy or radiculopathy, lumbar region; M54.50 Low back pain, unspecified; M17.11 Unilateral primary osteoarthritis, right knee; G90.522 Complex regional pain syndrome I of left lower limb; M25.562 Pain in left knee; Z96.652 Presence of left artificial knee joint; F11.90 Opioid use, unspecified, uncomplicated; E78.00 Pure hypercholesterolemia, unspecified; Z87.891 Personal history of nicotine dependence
CPT/HCPCS: 63685; 63650; J0690; J2250; J3010; J3370; Q9967

== ENCOUNTER → 2021-07-13 11:15 | Outpatient (BNVA) | payer MEDICARE, MEDICAID, SELFPAY | PROVIDERS: PCP Internal Medicine; Visit Provider Anesthesiology | DX: M25.562 Pain in left knee (principal); M47.816 Spondylosis without myelopathy or radiculopathy, lumbar region; M17.11 Unilateral primary osteoarthritis, right knee; G89.4 Chronic pain syndrome; G90.522 Complex regional pain syndrome I of left lower limb; Z96.652 Presence of left artificial knee joint; F11.20 Opioid dependence, uncomplicated | CPT/HCPCS: 99212 ==

== ENCOUNTER → 2021-09-02 07:27 | Day surgery (SDC) | payer MEDICARE, MEDICAID, SELFPAY ==
--- NOTE | 2021-08-10 11:47 | HO.ANESPROP2 ---
HPI - Anesthesia Eval Consult details Narrative: 65yo F for Lumbar Spinal Stimulation Implant 06/2021 case aborted d/t pt with increased oral secretions and wet cough in prone position and unable to perform procedure with GA Pt f/u'd with pulmo after cancelled procedure. Stable at that time and cleared to proceed without further testing. ? daily prednisone PMFSH Active Problems Active Problems: All Active Problems (Updated 08/05/21 @ 09:32 by Yue Neal RN) Complex regional pain syndrome i of left lower limb (Acute) Radial tunnel syndrome of right upper extremity (Acute) Radial tunnel syndrome of left upper extremity (Acute) Chronic, continuous use of opioids (Acute) Osteoarthritis of right knee (Acute) Chronic pain syndrome (Acute) Spondylosis of lumbar region without myelopathy or radiculopathy (Acute) Pain in left knee (Acute) Status post total knee replacement, left (Acute) Past Medical History Medical History (Updated 08/05/21 @ 09:32 by Yue Neal RN) Acute bronchospasm Asthma Chronic pain syndrome Chronic, continuous use of opioids Complex regional pain syndrome i of left lower limb COPD (chronic obstructive pulmonary disease) COVID-19 vaccine series completed Depression Elevated cholesterol GERD (gastroesophageal reflux disease) On beta eulalio at home Osteoarthritis of right knee Pain in left knee Radial tunnel syndrome of left upper extremity Radial tunnel syndrome of right upper extremity Spondylosis of lumbar region without myelopathy or radiculopathy Status post insertion of nerve stimulator Family History Family history of problems with anesthesia: No Surgical History Surgical History (Updated 08/05/21 @ 09:32 by Yue Neal RN) History of bronchoscopy History of carpal tunnel surgery History of lung surgery Status post total knee replacement, left History of Problems with Anesthesia: No Social History Social History Household Members: Family Household Members Other:: single lives with daughter and grandaughter Are you a primary healthcare associate to a significant other at home: No 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 If so, by whom?: No Are you DNR?: No Advance Directives: No Advance Directives Information Provided: Yes (brochure mailed w/last SSS) Advance Directives on File: No Recently lost weight without trying: No Eating poorly because of decreased appetite: No Nutrition Risks: No Nutritional Risk Current occupation: Disabled about 5 years due to musculoskeletal pain Meds Allergies Allergy/AdvReac Type Severity Reaction Status Date / Time No Known Allergies Allergy Verified 07/13/21 11:22 Home Medications Medication Instructions Recorded Confirmed Last Taken Type albuterol sulfate 90 mcg/actuation 2 puff PO Q4-6H PRN 03/04/20 08/05/21 07/07/21 09:00 History aerosol inhaler montelukast 10 mg tablet 10 mg PO BEDTIME 03/04/20 08/05/21 Unknown History omeprazole 20 mg capsule,delayed 20 mg PO DAILY 03/04/20 08/05/21 07/07/21 09:00 History release pravastatin 40 mg tablet 40 mg PO BEDTIME 03/04/20 08/05/21 Unknown History metoprolol tartrate 25 mg tablet 1 tab PO BID 08/02/20 08/05/21 07/07/21 09:00 History nifedipine 30 mg tablet,extended 1 tab PO DAILY 08/02/20 08/05/21 07/07/21 09:00 History release fluticasone furoate 200 1 puff PO DAILY 08/03/20 08/05/21 Unknown History mcg-vilanterol 25 mcg/dose inhalation powder (Breo Ellipta) umeclidinium 62.5 mcg/actuation 1 puff PO DAILY 08/03/20 08/05/21 04/08/21 06:20 History blister powder for inhalation (Incruse Ellipta) aspirin 81 mg tablet,delayed 1 tab PO DAILY 12/17/20 08/05/21 06/30/21 History release budesonide 0.5 mg/2 mL suspension 1 vial INHALATION BID 12/17/20 08/05/21 07/07/21 09:00 History for nebulization docusate sodium 100 mg capsule 1 cap PO BID 12/17/20 08/05/21 Unknown History (DOK) roflumilast 500 mcg tablet 1 tab PO DAILY 12/17/20 08/05/21 Unknown History (Daliresp) amitriptyline 25 mg tablet 1 tab PO BEDTIME 03/31/21 08/05/21 Unknown History prednisone 5 mg tablet 1 tab PO Q2D 08/05/21 08/05/21 Unknown History Exam Exam Date and Time: August 10, 2021 1147 Height,Weight and Vital Signs: Height 5 ft 1 in Weight 72.121 kg Assessment and Plan Assessment Anesthesia Assessment: Chart Reviewed Final Anesthetic Review Family History of Problems with Anesthesia: No History of Problems with Anesthesia: No
--- NOTE | 2021-09-01 12:46 | P.CONAN_ITS ---
HPI - Anesthesia Eval Consult details Narrative: CXd DOS d/t wheezes throughout after inhaler and UDN. 65yo F for Lumbar Spinal Stimulation Implant 06/2021 case aborted d/t pt with increased oral secretions and wet cough in prone position and unable to perform procedure with GA Pt f/u'd with pulmo after cancelled procedure. Stable at that time and cleared to proceed without further testing. ? daily prednisone PMFSH Active Problems Active Problems: All Active Problems (Updated 08/05/21 @ 09:32 by Yue Neal RN) Complex regional pain syndrome i of left lower limb (Acute) Radial tunnel syndrome of right upper extremity (Acute) Radial tunnel syndrome of left upper extremity (Acute) Chronic, continuous use of opioids (Acute) Osteoarthritis of right knee (Acute) Chronic pain syndrome (Acute) Spondylosis of lumbar region without myelopathy or radiculopathy (Acute) Pain in left knee (Acute) Status post total knee replacement, left (Acute) Past Medical History Medical History (Updated 09/06/21 @ 10:27 by Marcus Spaulding MD) Acute bronchospasm Asthma Chronic pain syndrome Chronic, continuous use of opioids Complex regional pain syndrome i of left lower limb COPD (chronic obstructive pulmonary disease) COPD (chronic obstructive pulmonary disease) COVID-19 vaccine series completed Depression Elevated cholesterol GERD (gastroesophageal reflux disease) On beta eulalio at home Osteoarthritis of right knee Pain in left knee Radial tunnel syndrome of left upper extremity Radial tunnel syndrome of right upper extremity Spondylosis of lumbar region without myelopathy or radiculopathy Status post insertion of nerve stimulator Family History Family history of problems with anesthesia: No Surgical History Surgical History (Updated 08/05/21 @ 09:32 by Yue Neal RN) History of bronchoscopy History of carpal tunnel surgery History of lung surgery Status post total knee replacement, left History of Problems with Anesthesia: No Social History Social History Household Members: Family Household Members Other:: single lives with daughter and grandaughter Are you a primary child caregiver private home to a significant other at home: No Do you presently have visiting nurse or other home services: Yes ([employer]ELOPER) Alcohol intake: never Patient Tobacco Use Status: Former Tobacco user Quit Date: 10/2020 Tobacco use type: Cigarette Cigarette Packs Per Day: 1 Cigarettes Per Day: 20.0 Years Smoked: >25 Current occupation: Disabled about 5 years due to musculoskeletal pain Meds Allergies Allergy/AdvReac Type Severity Reaction Status Date / Time No Known Allergies Allergy Verified 09/06/21 09:54 Home Medications Medication Instructions Recorded Confirmed Last Taken Type albuterol sulfate 90 mcg/actuation 2 puff PO Q4-6H PRN 03/04/20 08/05/21 07/07/21 09:00 History aerosol inhaler montelukast 10 mg tablet 10 mg PO BEDTIME 03/04/20 08/05/21 Unknown History omeprazole 20 mg capsule,delayed 20 mg PO DAILY 03/04/20 08/05/21 07/07/21 09:00 History release pravastatin 40 mg tablet 40 mg PO BEDTIME 03/04/20 08/05/21 Unknown History metoprolol tartrate 25 mg tablet 1 tab PO BID 08/02/20 08/05/21 07/07/21 09:00 History nifedipine 30 mg tablet,extended 1 tab PO DAILY 08/02/20 08/05/21 07/07/21 09:00 History release fluticasone furoate 200 1 puff PO DAILY 08/03/20 08/05/21 Unknown History mcg-vilanterol 25 mcg/dose inhalation powder (Breo Ellipta) umeclidinium 62.5 mcg/actuation 1 puff PO DAILY 08/03/20 08/05/21 04/08/21 06:20 History blister powder for inhalation (Incruse Ellipta) aspirin 81 mg tablet,delayed 1 tab PO DAILY 12/17/20 08/05/21 06/30/21 History release budesonide 0.5 mg/2 mL suspension 1 vial INHALATION BID 12/17/20 08/05/21 07/07/21 09:00 History for nebulization docusate sodium 100 mg capsule 1 cap PO BID 12/17/20 08/05/21 Unknown History (DOK) roflumilast 500 mcg tablet 1 tab PO DAILY 12/17/20 08/05/21 Unknown History (Daliresp) amitriptyline 25 mg tablet 1 tab PO BEDTIME 03/31/21 08/05/21 Unknown History prednisone 5 mg tablet 1 tab PO Q2D 08/05/21 08/05/21 Unknown History Exam Exam Date and Time: September 01, 2021 1246 Height,Weight and Vital Signs: Height 5 ft 1 in Weight 72.121 kg Assessment and Plan Assessment Anesthesia Assessment: Chart Reviewed Final Anesthetic Review Family History of Problems with Anesthesia: No History of Problems with Anesthesia: No
[2021-09-02 07:50] VITALS: BP 136/70; PULSE 79; RESP 18; TEMP 36.4; O2SAT 96
[2021-09-02] MEDS: Albuterol Sulfate (0.083%) 2.5 MG/3 ML VIAL.NEB INHALE (07:51)
[2021-09-02 07:53] VITALS: PULSE 79; RESP 18; O2SAT 98
[2021-09-02] MEDS: Lactated Ringers 1,000 ML 100 ML IVCONT (08:13)
--- NOTE | 2021-09-02 08:56 | PC.NURSE ---
Pt wheezing at baseline upon arrival and needed to use inhaler. Lung sounds wheezy throughout. Pt had schedule UDN at 0751 with respiratory. pt lung sounds remain wheezy throughout. Dr. Siddiqi, anesthesia to evaluate patient. pt has previous history of bronchospasms during surgery. call placed to pt pulmanologist Dr. Marcelle Tello awaiting call back. per anesthesia, Dr. Siddiqi and Dr. Orozco patient to be rescheduled. Dr. Rae at bedside to explain patient of need to reschedule. IV removed and intact. patient dressing. ride called.
== END ==
PROVIDERS: PCP Internal Medicine; Visit Provider Anesthesiology
DX: M47.816 Spondylosis without myelopathy or radiculopathy, lumbar region (principal); G89.4 Chronic pain syndrome; J44.9 Chronic obstructive pulmonary disease, unspecified; Z53.9 Procedure and treatment not carried out, unspecified reason
CPT/HCPCS: 94640; J0690; J2250; J3010; J3370

== ENCOUNTER → 2021-09-06 09:53 | Outpatient (BNVA) | payer MEDICARE, MEDICAID, SELFPAY | PROVIDERS: PCP Internal Medicine; Visit Provider Internal Medicine Pulmonary Disease | DX: R06.00 Dyspnea, unspecified (principal); R91.8 Other nonspecific abnormal finding of lung field; J84.9 Interstitial pulmonary disease, unspecified; J44.9 Chronic obstructive pulmonary disease, unspecified; F11.90 Opioid use, unspecified, uncomplicated; F17.210 Nicotine dependence, cigarettes, uncomplicated | CPT/HCPCS: 99202 ==

== ENCOUNTER 2021-09-07 09:48 | Outpatient (REF) | payer MEDICARE, MEDICAID, SELFPAY ==
--- NOTE | 2021-09-07 07:53 | PFT_ITS ---
FLOWS: FEV1 50% of predicted at 1.08 L. FVC 86% of predicted at 2.36 L. FEV1 to FVC ratio of 0.46. Positive bronchodilator response. LUNG VOLUMES: Total lung capacity 108% of predicted at 4.99 L. Residual volume 142% of predicted at 2.76 L. Slow vital capacity 83% of predicted at 2.23 L. Expiratory reserve volume 72% of predicted at 0.49 L. Diffusion capacity is mildly decreased, diffusion capacity corrects to normal after adjustment for alveolar ventilation. IMPRESSION: [id number] obstructive ventilatory defect with positive bronchodilator response. Increased residual volume suggests air trapping. MD MAURICIO Penny/MODL / [id number]
== END 2021-09-07 09:49 | disposition home or self-care (01) ==
LOC: HO.RESP 09:48
PROVIDERS: PCP Internal Medicine; Visit Provider Internal Medicine Pulmonary Disease
DX: Z01.818 Encounter for other preprocedural examination (principal); J44.9 Chronic obstructive pulmonary disease, unspecified; R06.00 Dyspnea, unspecified; F17.210 Nicotine dependence, cigarettes, uncomplicated; Z79.899 Other long term (current) drug therapy
CPT/HCPCS: 94060; 94727; 94729

== ENCOUNTER 2021-10-13 12:55 | Outpatient (REF) | payer MEDICARE, MEDICAID, SELFPAY ==
--- NOTE | ~2021-10-13 | CT_ITS ---
EXAMINATION: CT CHEST WITHOUT CONTRAST CLINICAL INFORMATION: Other nonspecific abnormal finding of lung field COMPARISON: Chest CT 04/30/2021 and earlier TECHNIQUE: Multidetector volumetric CT imaging of the chest was done. Axial MIP volume rendering provided. Sagittal and coronal reformatted images were obtained. This CT examination was performed using dose optimization techniques as appropriate, variously including the following: *Automated exposure control *Adjustment of mA and/or kV according to patient size (this includes techniques or standardized protocols for targeted exams where dose is matched to indication/reason for exam; i.e. extremities or head) *Use of iterative reconstruction technique DLP: 141 mGy-cm FINDINGS: LEAF STICKER: Symmetrically expanded lungs. Flattening of the diaphragms consistent with emphysema. LUNGS: Mild centrilobular emphysema. Suture chain from prior partial lung resection in the medial aspect of the right upper lobe. There is associated architectural distortion and bronchial wall thickening with traction bronchiectasis. Moderate diffuse bronchial wall thickening is seen. There is an additional suture chain at the right lung base with some architectural distortion. Scattered pulmonary micronodules are unchanged. 2 to 3 mm right upper lobe nodule in image 36/196. 2 mm juxtapleural nodule anterolaterally in the left upper lobe image 49. 3 mm nodule along the right minor fissure, image 71, unchanged. Persistent linear calcification along the right minor fissure in image 70. 4 mm left apical groundglass opacity in image 28/196 is similar. 4 x 8 mm left upper lobe nodule in image 60/196 unchanged. MEDIASTINUM: No hilar or mediastinal lymphadenopathy. Normal heart size. No hilar or mediastinal lymphadenopathy. PLEURA: There is no pleural effusion. No pleural mass or thickening. AXILLA: Normal-sized right axillary lymph nodes are present. No internal mammary lymphadenopathy. UPPER ABDOMEN: Again seen is diffuse low density thickening of the left adrenal gland suggesting adrenal hyperplasia. Normal right adrenal gland. A gallstone is noted. Punctate tiny 1 mm bilateral renal calculi are present. OSSEOUS STRUCTURES: Multilevel degenerative changes. No acute or suspicious osseous abnormality. CT/CT chest wo con IMPRESSION: Similar appearance of multiple pulmonary abnormalities including bronchial wall thickening, mild emphysema, and unchanged pulmonary micronodules. As described previously, based on Fleischner guidelines, consider continued annual 12 month follow-up if the patient is high risk. In the low risk patient, no imaging follow-up is required. Fleischner guidelines were followed.
== END 2021-10-13 12:56 | disposition home or self-care (01) ==
LOC: HO.CT 12:55
PROVIDERS: Visit Provider Internal Medicine Pulmonary Disease
DX: R91.8 Other nonspecific abnormal finding of lung field (principal); J84.9 Interstitial pulmonary disease, unspecified
CPT/HCPCS: 71250

== ENCOUNTER → 2021-10-14 14:50 | Outpatient (REF) | payer MEDICARE, MEDICAID, SELFPAY ==
--- NOTE | 2021-10-14 15:10 | CA_ITS ---
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 The calculated ejection fraction is 54% by biplane method. - The basal inferior and basal inferolateral segments are hypokinetic. - No obvious valvular pathology seen on this study. - The pulmonary artery systolic pressure is normal. - There is no evidence of pericardial effusion. Findings Left Ventricle Normal left ventricular cavity size. There is normal left ventricular wall thickness. The left ventricular systolic function is low normal. The calculated ejection fraction is 54% by biplane method. E/E prime ratio is between 8 and 15 consistent with indeterminate filling pressures. Evidence suggests grade I (mild) diastolic dysfunction. Wall Motion Rest Echo Findings The basal inferior and basal inferolateral segments are hypokinetic. Right Ventricle Normal right ventricular cavity size and systolic function. Atria Both atria are normal in size. Aortic Valve There is a normal trileaflet aortic valve. There is no aortic valve stenosis. There is no aortic valve regurgitation. Mitral Valve The mitral valve appears normal. There is trace mitral valve regurgitation. There is no mitral valve stenosis. Pulmonic Valve The pulmonic valve is likely normal. Tricuspid Valve Normal tricuspid valve structure. There is trace tricuspid valve regurgitation. The pulmonary artery systolic pressure is normal. Great Vessels The asc aorta is normal in size. Venous The inferior vena cava is normal in size and collapses greater than 50% with inspiration. Pericardium/Pleural There is no evidence of pericardial effusion. Prior Study Comparison No prior study available for comparison. Recommendations, Care & Conclusions No obvious valvular pathology seen on this study. Measurements 2D Linear Measurements IVSd: 1.00 0.6-0.9/0.6-1.0 cm LVIDd: 3.93 3.9-5.3/4.2-5.9 cm LVIDd Index: 2.30 2.4-3.2/2.2-3.1 cm/m2 LVIDs: 2.49 2.0-3.6 cm LVPWd: 0.96 0.7-1.1 cm LA Diam: 2.80 2.7-3.8/3.0-4.0 cm LAIDs Index: 1.64 1.5-2.3 cm/m2 LV Mass: 148.84 67-162/88-224 g LV Mass Index: 87.04 43-95/49-115 g/m2 LVOT Diam: 2.10 3.0+(-)1.3 cm 2D Volumes LA Vol: 23.90 2D Systolic Function EF 4C: 51.90 >55% EF 2C: 56.00 >55% EF BiP: 54.10 >55% Mitral Valve MV Pk E: 0.67 MV PK A: 1.01 MV Decel Time: 198.00 E/A: 0.70 E'Lateral: 8.16 E'Medial: 5.33 E/E' Med: 12.50 E/E' Lat: 8.20 PHT: 58.00 MVA PHT: 3.79 Decel [place]: 3.38 LVOT LVOT Diam: 2.10 LVOT Area: 3.46 Diastolic Function MV Pk E: 0.67 MV Pk A: 1.01 E/A: 0.70 E'Medial: 5.33 E/E' Med: 12.50 E' L[place]: 8.16 E/E' Lat: 8.20 Right Ventricle TAPSE (mm): 23.20 TVS' [place]: 12.80 Tricuspid Valve TR Pk [place]: 1.17 TR Pk Grad: 5.00 RA Press: 3.00 RVSP: 8.00 Great Vessels Aorta Sinus of Valsalva: 2.96 2.0-3.5 cm Ao Asc: 3.10 2.1-3.4 cm Updated in Other Vendor System with Status of Final Hernandez Ghosh MD electronically signed on 10/16/2021 11:57:47 AM with status of Final
== END ==
LOC: HO.CARD 14:50
PROVIDERS: Visit Provider Internal Medicine Pulmonary Disease
DX: R06.00 Dyspnea, unspecified (principal)
CPT/HCPCS: 93306

== ENCOUNTER → 2021-10-31 10:28 | Outpatient (BNVA) | payer MEDICARE, MEDICAID, SELFPAY | PROVIDERS: PCP Internal Medicine; Visit Provider Internal Medicine Pulmonary Disease | DX: R06.00 Dyspnea, unspecified (principal); J44.9 Chronic obstructive pulmonary disease, unspecified | CPT/HCPCS: 99212 ==

== ENCOUNTER → 2021-12-07 10:53 | Outpatient (BNVA) | payer MEDICARE, MEDICAID, SELFPAY | PROVIDERS: PCP Internal Medicine; Visit Provider Internal Medicine Pulmonary Disease | DX: J44.9 Chronic obstructive pulmonary disease, unspecified (principal); R06.00 Dyspnea, unspecified; Z79.899 Other long term (current) drug therapy | CPT/HCPCS: 99212 ==

== ENCOUNTER → 2022-01-26 12:59 | Outpatient (BNVA) | payer MEDICARE, MEDICAID, SELFPAY | PROVIDERS: PCP Internal Medicine; Visit Provider Internal Medicine Cardiovascular Disease | DX: R06.00 Dyspnea, unspecified (principal) | CPT/HCPCS: 99202 ==

== ENCOUNTER → 2022-02-27 09:05 | Outpatient (REF) | payer MEDICARE, MEDICAID, SELFPAY ==
--- NOTE | ~2022-02-27 | NM_ITS ---
Lexiscan Myocardial perfusion study Indication: Shortness of breath, assess for coronary disease and ischemia Technique: The patient was brought in for a Lexiscan perfusion study on 02/27/2022 and was injected 0.4 mg of Lexiscan intravenously. Within a minute of this injection 25 mCi of sestamibi was given intravenously. Images were obtained using the SPECT gamma camera interlaced with the gating device. Images were obtained in supine position. Resting perfusion study was performed on 02/28/2022. Patient was administered 25 mCi of sestamibi intravenously at rest. Images were then obtained in supine position. Total DLP 97mGy-cm. Images were processed with the software and compared side to side in short axis, horizontal long axis and vertical long axis views. Findings: Raw acquisition reviewed. The stress perfusion study showed diminished tracer uptake in the mid anterior wall. In the CT attenuation corrected images, there is reduced tracer uptake in the distal part of anterior wall. The gated study shows normal LV systolic function with calculated LVEF of >70%. LV cavity is normal in size. The gated study shows normal wall thickening and contraction of segments. Resting study shows no significant perfusion abnormality. Gating at rest reveals normal wall motion with ejection fraction at >70%. The findings are consistent with mild reversible mid anterior defect. In the attenuation corrected heart, rather appears fixed in the distal anterior wall. NM/NM oly perf SPECT rest & str Impression: 1. Myocardial perfusion imaging study shows mild reversible mid anterior defect with normal contractility. Probably all artifactual. 2. Gated LVEF is > 70% during stress and rest. 3. Transient ischemic dilatation not present. EKG component of the test reported separately.
--- NOTE | 2022-02-27 09:08 | CA_ITS ---
Acquisition Time: 2022-02-27 10:23:42 Total Exercise Time: 00:06:49 Test Indications: R06.00 - Dyspnea, unspecified Medications: Protocol: DOBUTAMINE Max HR: 148 BPM 95% of Pred: 155 BPM Max BP: 154/088 mmHG Max Work Load: 1.0 METS Pharmacological stress test with Dobutamine infusion per protocol, to max of 10mcg/kg/min achieving 95% MPHR, without anginal symptoms, with isolated PVCs, with change of BP from 152/80 at start of infusion and 142/76 at peak infusion, without EKG changes meeting criteria for ischemia. Nuclear images pending. Test reviewed with Dr Jenkins. Referred By: Brendon Jenkins Overread By: ELIEL JUNIOR
== END ==
LOC: HO.CARD 09:05
PROVIDERS: PCP Internal Medicine; Visit Provider Internal Medicine Cardiovascular Disease
DX: R06.00 Dyspnea, unspecified (principal)
CPT/HCPCS: 78452; 93017; A9500; J1250

== ENCOUNTER → 2022-06-14 10:17 | Outpatient (BNVA) | payer MEDICARE, MEDICAID, SELFPAY | PROVIDERS: PCP Internal Medicine; Visit Provider Anesthesiology | DX: G90.522 Complex regional pain syndrome I of left lower limb (principal); M17.11 Unilateral primary osteoarthritis, right knee; M25.562 Pain in left knee; M47.816 Spondylosis without myelopathy or radiculopathy, lumbar region; G89.4 Chronic pain syndrome; F11.90 Opioid use, unspecified, uncomplicated; Z96.652 Presence of left artificial knee joint | CPT/HCPCS: 99212 ==

== ENCOUNTER → 2022-08-02 12:59 | Outpatient (BNVA) | payer MEDICARE, MEDICAID, SELFPAY | PROVIDERS: PCP Internal Medicine; Visit Provider Anesthesiology | DX: M25.562 Pain in left knee (principal); M47.816 Spondylosis without myelopathy or radiculopathy, lumbar region; M17.11 Unilateral primary osteoarthritis, right knee; G90.522 Complex regional pain syndrome I of left lower limb; G89.4 Chronic pain syndrome; F11.20 Opioid dependence, uncomplicated; Z96.652 Presence of left artificial knee joint | CPT/HCPCS: 99212 ==

== ENCOUNTER → 2022-11-29 13:12 | Outpatient (BNVA) | payer MEDICARE, MEDICAID, SELFPAY | PROVIDERS: PCP Internal Medicine; Visit Provider Anesthesiology | DX: M25.562 Pain in left knee (principal); M47.816 Spondylosis without myelopathy or radiculopathy, lumbar region; M17.11 Unilateral primary osteoarthritis, right knee; G90.522 Complex regional pain syndrome I of left lower limb; F11.20 Opioid dependence, uncomplicated; G89.4 Chronic pain syndrome; Z96.652 Presence of left artificial knee joint | CPT/HCPCS: 99212 ==

== ENCOUNTER → 2022-12-21 09:57 | Outpatient (BNVA) | payer MEDICARE, MEDICAID, SELFPAY | PROVIDERS: PCP Internal Medicine; Visit Provider Anesthesiology ==

== ENCOUNTER 2023-07-04 10:48 | Outpatient (AMB) | payer OTHER, MEDICAID, SELFPAY ==
--- NOTE | 2023-07-04 10:49 | A.OFFVIS_ITS ---
Intake Vital Signs 07/04/23 10:55 Height 5 ft 1 in Weight 150 lb BMI 28.3 BP 140/76 H Blood Pressure Location Lt brachial Position Sitting Respiration 16 Pulse 110 H Pulse Source Pulse Oximeter Pulse Oximetry (%) 96 Oxygen Delivery Method Room Air Intake Visit Reasons: Follow Up/CRPS - Confirmed Intake Note: Patient comes in for follow up appointment. Reports pain 12/04. Allergies No Known Allergies Allergy (Verified 07/04/23 10:55) HPI HPI Comments History of Present Illness Details Genie is back in my office to inquire about the procedures were which were planned for her in the past. Her psychological evaluation got . We need to schedule her for yet another psychological evaluation. She reported today that she has computer at home and we need to perform psychological evaluation with [facility]. She needs to be aware of co-payment of 100 dollars for this procedure. Under care of Dr. Spaulding.? She greatly improved.? Prior: She went for implantation of thoracic leads [employer] spinal cord stimulator to treat her lower back pain as well as addition of the left- sided leads 3 Complex regional pain syndrome in the left lower extremity 16 leads electrode position in the lumbar spine.? She was tolerating procedure poorly at the beginning of the procedure see started to get wheezy and having asthma attack.? Anesthesiology recommendation was not to proceed with 2 surgeries at once and rather separate them with lumbar spinal cord stimulator implantation following with implantation of the 16 lead electrode in the left lumbar spine.? She went for treatment with pulmonology and greatly improved.? I was planning to perform 1st for the thoracic leads implantation and 1 month after will add 16 leads electrode in her left lumbar spine to treat the Complex regional pain syndrome of the left lower extremity status post surgery on her left knee.? However when we try to schedule the procedure her insurance denied the procedure because her psychological evaluation .? She reports today that she is depressed.? She is not on antidepressant medications.? She is also suffering from severe pain.? She was suspended from our opioid program in the past.? She was on tramadol.? Tramadol as antidepressant.? The combination of the effect of the analgesia and antidepressant effective with tramadol might be enough to improve her depression.? Will schedule her for UDS tomorrow as a random UDS and if her UDS is clean will start her on tramadol.? At the same time she will ask her primary care physician to refer her to psychologist or psychiatrist or treat her depression in the PCP offic COUNTS INCLUDE 234 BEDS AT THE [facility] Medical History Acute bronchospasm Asthma Chronic pain syndrome Chronic, continuous use of opioids Complex regional pain syndrome i of left lower limb COPD (chronic obstructive pulmonary disease) COVID-19 vaccine series completed Depression Elevated cholesterol GERD (gastroesophageal reflux disease) On beta eulalio at home Osteoarthritis of right knee Pain in left knee Radial tunnel syndrome of left upper extremity Radial tunnel syndrome of right upper extremity Spondylosis of lumbar region without myelopathy or radiculopathy Status post insertion of nerve stimulator Surgical History History of bronchoscopy History of carpal tunnel surgery History of lung surgery Status post total knee replacement, left Social History Household Members: Family Household Members Other:: single lives with daughter and grandaughter Are you a primary caregiver services home to a significant other at home: No Do you presently have visiting nurse or other home services: Yes ([employer]ER) Alcohol intake: never Patient Tobacco Use Status: Former Tobacco user Quit Date: 10/2020 Tobacco use type: Cigarette Cigarette Packs Per Day: 1 Cigarettes Per Day: 20.0 Years Smoked: >25 Current occupation: Disabled about 5 years due to musculoskeletal pain Review of Systems Const All systems reviewed & are unremarkable except as noted in HPI and below Physical Exam Vital Signs: Last Vital Signs Pulse 110 H 07/04/23 10:55 Resp 16 07/04/23 10:55 BP 140/76 H 07/04/23 10:55 Pulse Ox 96 07/04/23 10:55 Oxygen Delivery Method Room Air 07/04/23 10:55 BMI result Body Mass Index 28.3 Const General: no acute distress, well developed, alert and awake Nutritional Appearance: average body habitus Eyes Pupils: Equal, round and reactive pupils present EOM: EOMs intact bilaterally Chest Chest palpation & inspection: normal inspection of the chest Resp Effort & Inspection: normal respiratory effort, able to speak in complete sentences, normal respiratory pattern and no audible wheezes Cardio Jugular venous distension: no JVD Back/Spine/Pelvis Other: She is able to walk on her heels as well as on her tiptoes. The range of motions of bilateral knees is very limited. The range of motion of the left knee is only 40?. Right knee range of motion goes up to 90?. There is a well- healed scar on the anterior surface of the left knee. There is thinness of the skin in the projection of the left knee. The scar is very well-healed however the temperature of the skin over the left knee is lower that the temperature of the skin on the right knee. She is able to flex forward and backwards in her lumbar spine. Flexing backwards aggravate her pain in the back more than flexing forward. facet loading test is positive for the pain increase. Her pain is in the projection of the upper sacral bone and lower lumbar spine where she reports severe tenderness on palpation in spinal as well as paraspinal regions Neuro Cranial nerves: Yes Equal, round and reactive pupils present Cognition (Neuro): normal cognition Gait exam (Neuro): Normal gait present Extrem General: Yes full ROM Assessment & Plan Assessment & Plan (1) Status post total knee replacement, left: Code(s): Z96.652 - Presence of left artificial knee joint (2) Pain in left knee: Code(s): M25.562 - Pain in left knee (3) Spondylosis of lumbar region without myelopathy or radiculopathy: Code(s): M47.816 - Spondylosis without myelopathy or radiculopathy, lumbar region (4) Chronic pain syndrome: Code(s): G89.4 - Chronic pain syndrome (5) Osteoarthritis of right knee: Code(s): M17.11 - Unilateral primary osteoarthritis, right knee (6) Chronic, continuous use of opioids: Code(s): F11.90 - Opioid use, unspecified, uncomplicated (7) Complex regional pain syndrome i of left lower limb: Code(s): G90.522 - Complex regional pain syndrome I of left lower limb Plan She was suspended with our opioid program. She had a trial of spinal cord stimulator. She reports 75% improvement on spinal cord stimulator. She went for implantation of the spinal cord stimulator and before incision she developed severe bronchospasm. The case was canceled. She was [place] [facility] [place] (Dr. Spaulding) and Cardiology (Dr. Restrepo) in her condition in greatly improved. Anesthesiology is recommending to perform the plan spinal cord stimulation as the two-stage procedure. Meanwhile while under treatment with pulmonology and Cardiology her psychological evaluation . [facility] psychological evaluation will be scheduled now at home because she reports that she have a computer. We will schedule it obey. Coding Level of Care Code Est Pt Level 3 (35989) Diagnoses Status post total knee replacement, left Z96.652 Pain in left knee M25.562 Spondylosis of lumbar region without myelopathy or radiculopathy M47.816 Chronic pain syndrome G89.4 Osteoarthritis of right knee M17.11 Chronic, continuous use of opioids F11.90 Complex regional pain syndrome i of left lower limb G90.522
[2023-07-04 10:55] VITALS: BP 140/76; PULSE 110; RESP 16; O2SAT 96; BMI 28.3
== END 2023-07-04 11:30 | disposition home or self-care (01) ==
PROVIDERS: PCP Internal Medicine; Visit Provider Anesthesiology
DX: G89.4 Chronic pain syndrome (principal); Z96.652 Presence of left artificial knee joint; M25.562 Pain in left knee; Z79.891 Long term (current) use of opiate analgesic; M47.816 Spondylosis without myelopathy or radiculopathy, lumbar region; M17.11 Unilateral primary osteoarthritis, right knee; G90.522 Complex regional pain syndrome I of left lower limb
CPT/HCPCS: 99213

== ENCOUNTER → 2023-07-04 10:48 | Outpatient (BNVA) | payer MEDICARE, MEDICAID, SELFPAY | PROVIDERS: PCP Internal Medicine; Visit Provider Anesthesiology | DX: M47.816 Spondylosis without myelopathy or radiculopathy, lumbar region (principal); M25.562 Pain in left knee; M17.11 Unilateral primary osteoarthritis, right knee; G90.522 Complex regional pain syndrome I of left lower limb; F11.20 Opioid dependence, uncomplicated; G89.4 Chronic pain syndrome | CPT/HCPCS: 99212 ==

== ENCOUNTER 2025-04-02 09:44 | Outpatient (AMB) | payer OTHER, SELFPAY ==
--- OUTSIDE RECORDS SUMMARY | 2025-04-01 10:00 | XMS_ITS | Encounter Summary ---
Author Organization [facility] Address [address] [place] [address] Care Team Providers Care Shoe Stock Associate Name Role Phone Ariella Huddleston MD Primary Care Provider [phone] Reason for Visit * Reason Comments Follow-up * Consultation (Routine) - Authorized Specialty Diagnoses / Procedures Referred By Liliam romero Referred To Contact Hematology and Oncology Diagnoses Anemia, unspecified type Ariella Huddleston MD [address] [phone] Phone: tel: fax: [facility] Hematology Oncology [address] [place] [address] Phone: tel: fax: Referral ID Status Reason Start Date Expiration Date Visits Requested Visits Authorized [id number] Authorized Specialty Services Required 03/12/2026 1 1 Encounter Details Date Type Department Care Team (Late st Contact Info) Description 04/01/2025 10:00 AM EST Office Visit [facility] Hematology Oncology [address] [place] [phone] Ivett Salinas PA [address] [place] [address] Anemia, unspecified type (Primary Dx) Social History Tobacco Use Types Packs/Day Years Used Date Smoking Tobacco: Every Day Cigarettes Smokeless Tobacco: Never Tobacco Cessation:Ready to Q uit: Not Asked Alcohol Use Standard Drinks/Week Comments No 0 (1 standard drink = 0.6 oz pur e alcohol) Comments No Sex and Gender Information Value Date Recorded Sex Assigned at Female 02/12/2025 4:03 PM EDT Legal Sex Female 6:15 AM EST Gender Identity Not on file Sexual Orientation Not on file documented as of this encounter Last Filed Vital Signs Vital Sign Reading Time Taken Comments Blood Pressure 118/64 04/01/2025 10:06 AM EST Pulse 81 04/01/2025 10:06 AM EST Temperature 36.6 C (97.8 F) 04/01/2025 10:06 AM EST Respiratory Rate - - Oxygen Saturation 96% 04/01/2025 10:06 AM EST Inhaled Oxygen Concentration - - Weight 68.5 kg (151 lb) 04/01/2025 10:06 AM EST Height 154.9 cm (5' 1 ) 04/01/2025 10:06 AM EST Body Mass Index 28.53 04/01/2025 10:06 AM EST documented in this encounter Progress Notes * FRANCIS Olivera - 04/01/2025 10:00 AM EST Images from the original note were not included. Hematology/Oncology Consult Note Date of Consult: 04/01/2025 Patient's Primary Care Physician: Ariella Huddleston MD Subjective History of Present Illness 69 year old female PMH hypothyroidism, COPD, HTN, HLD, here for evaluation of anemia. Patient reports feeling overall well, but endorses chronic fatigue and exertional SOB. Her fatigue seems to have been worsening over the past year. She had a recent episode of pneumonia in November. Reports a well-balanced diet with meat, grains, and vegetables. Reports pagophagia over the past 2 weeks. She does note easy bruising but is on Plavix. No fevers, chills, unintentional weight loss, or night sweats. No history of bariatric surgery. No family history of hematologic conditions. She has a history of smoking since she was 19 years old, had taken a hiatus for a few months following a surgery for aneurism repair, but recently began smoking again. She is followed by a boiler/chiller technician for COPD and has routine imaging for lung cancer screening. REVIEW OF SYSTEMS: Constitutional: No fevers, unintentional weight loss, nightsweats, chills, +fatigue HEENT: No changes in vision Respiratory: No cough, + exertional shortness of breath Cardiac: No chest pain, palpitations GI: No nausea, vomiting, diarrhea, constipation, abdominal pain Neuro: No headaches, dizziness, focal weakness Musculoskeletal: No bone pain, no joint pain. Hem/Lymph : No palpable lymph nodes, no bleeding or easy bruising Past Medical History Medical History[1] Past Surgical History Surgical History[2] Family History Family History[3] Personal and Social History Tobacco Use History[4] Social History Substance and Sexual Activity Alcohol Use No Social History Substance and Sexual Activity Drug Use No Objective Medications Current Medications[5] Allergies Allergies[6] Physical Exam Vitals: 04/01/25 1006 BP: 118/64 Pulse: 81 Temp: 36.6 ??C (97.8 ??F) SpO2: 96% Weight: 68.5 kg (151 lb) Height: 1.549 m (61 ) Body mass index is 28.53 kg/m??. General: no acute distress Eyes: conjunctiva pink and sclera are normal without icterus Oral cavity: No erythema or exudates Neck Neck supple, no adenopathy Resp: CTA; normal inspiratory effort, no wheezes, rhonchi or rales Cardio: RRR, no murmurs rubs or gallops Abdomen: soft non tender, non distended, normoactive bowel sounds, MSK: FROM of UE and Les bilaterally; no edema Skin: warm, dry, no rashes Neuro: alert and oriented, normal speech, normal gait Labs Assessment & Plan 69 year old female PMH hypothyroidism, COPD, HTN, HLD, here for evaluation of anemia. Anemia I've ordered an anemia workup including CBC' D, CMP, iron studies, ferritin, haptoglobin, LDH, erythropoietin, reticulocyte, TSH, B12 and folate. If initial workup is unrevealing, can consider MM workup and bone marrow biopsy to evaluate for early MDS Thrombocytosis Could be reactive in the setting of potential iron deficiency anemia If anemia not from iron deficiency, can consider further thrombocystis workup Leukocytosis with Neutrophilia Likely in the setting of recent pneumonia Will recheck on CBC today, if persistently elevated can consider further workup such as BCR/peripheral smear Follow-up in 1 month Please note, this note may have been created in part by using [employer] dictation software, and therefore, it may contain typographical and/or grammatical errors inherent in a voice recognition software program CC: Ariella Huddleston MD Sign: Ivett Salinas PA-C Hematology/Oncology Sister Natali [facility] [phone] [1] Past Medical History: Diagnosis Date Arthritis DX:Arthritis Asthma DX:Asthma Depression 08/26/2015 DX:Depression Eczema 05/18/2015 DX:Eczema GERD (gastroesophageal reflux disease) 11/21/2012 DX:GERD (gastroesophageal reflux disease) Hyperlipidemia 01/23/2018 DX:Hyperlipidemia Hypertension 01/23/2018 DX:Hypertension Hyperthyroidism 06/19/2017 DX:Hyperthyroidism Osteoarthritis 03/01/2017 DX:Osteoarthritis Pulmonary nodules 11/03/2016 DX:Pulmonary nodules Skin lesions 03/01/2017 DX:Skin lesions Vitamin D deficiency 02/06/2013 DX:Vitamin D deficiency [2] Past Surgical History: Procedure Laterality Date BACK SURGERY PROCEDURE: HISTORICAL BACK SURGERY; COMMENT: lumbar CARPAL TUNNEL RELEASE PROCEDURE: HISTORICAL CARPAL TUNNEL REL COLONOSCOPY PROCEDURE: HISTORICAL COLONOSCOPY HYSTERECTOMY 2004 PROCEDURE: HISTORICAL HYSTERECTOMY; COMMENT: total hysterectomy for AUB SHOULDER SURGERY Right PROCEDURE: HISTORICAL SHOULDER SURGERY; COMMENT: rotator cuff surgery [3] Family History Problem Relation Name Age of Onset Breast cancer Mother 72.00 Arthritis Mother Hypertension Mother Other (Other: blood clot) Mother Breast cancer Mother's side 55.00 aunt Hypertension Father Arthritis Brother [4] Social History Tobacco Use Smoking Status Every Day Types: Cigarettes Smokeless Tobacco Never [5] Current Outpatient Medications: acetaminophen (TYLENOL) 325 mg tablet, TAKE 2 TABLETS BY MOUTH EVERY 6 HOURS NEEDED FOR MILD PAIN. NOT TO EXCEED 4000 MG DAILY, Disp: , Rfl: albuterol HFA (Ventolin HFA) 90 mcg/actuation inhaler, Inhale 2 puffs by mouth every 6 (six) hours if needed for wheezing., Disp: 6.7 g, Rfl: 11 amitriptyline (ELAVIL) 25 mg tablet, TAKE 1 TABLET BY MOUTH AT BEDTIME, Disp: 90 tablet, Rfl: 1 Anti-DiarrheaL, loperamide, 2 mg tablet, , Disp: , Rfl: aspirin 81 mg EC tablet, Take 1 tablet (81 mg total) by mouth 1 (one) time each day., Disp: 90 tablet, Rfl: 2 calcium carbonate-vitamin D 500 mg-5 mcg (200 unit) per tablet, Take 1 tablet by mouth 2 (two) times a day., Disp: 180 each, Rfl: 3 cetirizine (ZyrTEC) 10 mg tablet, Take 1 tablet (10 mg total) by mouth 1 (one) time each day., Disp: 30 tablet, Rfl: 11 chlorthalidone (HYGROTON) 25 mg tablet, Take 1 tablet (25 mg total) by mouth 1 (one) time each day., Disp: 90 tablet, Rfl: 1 clotrimazole (LOTRIMIN) 1 % cream, Apply topically 2 (two) times a day., Disp: 30 g, Rfl: 2 cyclobenzaprine (FLEXERIL) 5 mg tablet, TAKE 1 TABLET BY MOUTH DAILY NEEDED FOR MUSCLE SPASMS, Disp: 30 tablet, Rfl: 3 diazePAM (VALIUM) 2 mg tablet, , Disp: , Rfl: docusate sodium (COLACE) 100 mg capsule, Take 1 capsule (100 mg total) by mouth 2 (two) times a day., Disp: , Rfl: xwaayqstexa-kqsfdyyebjdo-sruueczfyq (Trelegy Ellipta) 200-62.5-25 mcg inhaler, Inhale 1 puff (200 mcg total) by mouth 1 (one) time each day. Rinse mouth with water after use to reduce aftertaste and incidence of candidiasis. Do not swallow., Disp: 1 each, Rfl: 12 hydrALAZINE (APRESOLINE) 25 mg tablet, Take 1 tablet (25 mg total) by mouth 2 (two) times a day., Disp: , Rfl: hydrocortisone 2.5 % cream, , Disp: , Rfl: hydrOXYzine HCL (ATARAX) 10 mg tablet, Take 1 tablet (10 mg total) by mouth 3 (three) times a day.,Disp: 60 tablet, Rfl: 3 ibuprofen (ADVIL,MOTRIN) 800 mg tablet, TAKE 1 TABLET BY MOUTH EVERY 8 HOURS WITH FOOD NEEDED, Disp: , Rfl: ketoconazole (NIZORAL) 2 % cream, Apply topically 2 (two) times a day., Disp: 30 g, Rfl: 2 methIMAzole (TAPAZOLE) 5 mg tablet, TAKE 1 TABLET BY MOUTH DAILY, Disp: 30 tablet, Rfl: 5 metoprolol tartrate (LOPRESSOR) 50 mg tablet, TAKE 1 TABLET(50 MG) BY MOUTH TWICE DAILY, Disp: 60 tablet, Rfl: 3 montelukast (SINGULAIR) 10 mg tablet, Take 1 tablet (10 mg total) by mouth at bedtime., Disp: 90 tablet, Rfl: 11 NIFEdipine CC (ADALAT CC) 60 mg 24 hr tablet, TAKE 1 TABLET BY MOUTH DAILY, Disp: 90 tablet, Rfl: 1 omeprazole (PriLOSEC) [address] capsule, Take 1 capsule (20 mg total) by mouth 1 (one) time each day., Disp: 90 capsule, Rfl: 3 ondansetron (ZOFRAN) 4 mg tablet, Take 1 tablet (4 mg total) by mouth every 8 (eight) hours. for 7 days, Disp: , Rfl: Plavix 75 mg tablet, Take 1 tablet (75 mg total) by mouth., Disp: , Rfl: potassium chloride (KLOR-CON M10) 10 mEq CR tablet, Take 1 tablet (10 mEq total) by mouth 1 (one) time each day., Disp: 30 tablet, Rfl: 1 pravastatin (PRAVACHOL) 40 mg tablet, Take 1 tablet (40 mg total) by mouth 1 (one) time each day., Disp: 90 tablet, Rfl: 3 roflumilast (DALIRESP) 500 mcg tablet, Take 1 tablet (500 mcg total) by mouth 1 (one) time each day., Disp: 30 tablet, Rfl: 11 simethicone (MYLICON) 80 mg chewable tablet, CHEW AND SWALLOW 1 TABLET BY MOUTH THREE TIMES DAILY FOR 7 DAYS, Disp: , Rfl: theophylline (Liam-24) 400 mg 24 hr capsule, Take 1 capsule (400 mg total) by mouth., Disp: , Rfl: traMADoL (ULTRAM) 50 mg tablet, Take 1 tablet (50 mg total) by mouth 2 (two) times a day if needed for severe pain. Max Daily Amount: 100 mg, Disp: 56 tablet, Rfl: 4 doxycycline (ADOXA) 100 mg tablet, Take 1 tablet (100 mg total) by mouth 2 (two) times a day. for 7days (Patient not taking: Reported on 04/01/2025), Disp: , Rfl: levoFLOXacin (LEVAQUIN) 750 mg tablet, Take 1 tablet (750 mg total) by mouth 1 (one) time each day.(Patient not taking: Reported on 04/01/2025), Disp: 7 tablet, Rfl: 0 predniSONE (DELTASONE) 10 mg tablet, Take 4 tablets (40 mg total) by mouth 1 (one) time each day for 4 days, THEN 3 tablets (30 mg total) 1 (one) time each day for 4 days, THEN 2 tablets (20 mg total) 1 (one) time each day for 4 days, THEN 1 tablet (10 mg total) 1 (one) time each day for 4 days. (Patient not taking: No sig reported), Disp: 40 each, Rfl: 0 Current Facility-Administered Medications: albuterol 2.5 mg /3 mL (0.083 %) nebulizer solution 2.5 mg, 2.5 mg, nebulization, Once, Marcelle Tello MD omalizumab syringe 450 mg, 450 mg, subcutaneous, q28 days, Marcelle Tello MD omalizumab syringe 450 mg, 450 mg, subcutaneous, q14 days, Marcelle Tello MD omalizumab syringe 450 mg, 450 mg, subcutaneous, q14 days, Marcelle Tello MD [6] No Known Allergies Cosigned by Elsie Jolly MD at 04/01/2025 5:40 PM EST documented in this encounter Plan of Treatment Upcoming Encounters Date Type Department Care Team (Late st Contact Info) Description 04/03/2025 12:30 PM EST Office Visit Internal Medicine - [address] [phone] Ariella Huddleston MD [address] [place] [address] 04/14/2025 11:15 AM EST Office Visit Pulmonology - [address] [phone] Marcelle Tello MD [address] [place] [phone] 05/04/2025 2:00 PM EST Office Visit [facility] Hematology Oncology [address] [place] [phone] Ivett Salinas PA [address] [place] [address] 07/03/2025 11:30 AM EST Office Visit Internal Medicine [facility] [address] [facility] [address] [place] [phone] Ariella Huddleston MD [address] [place] [phone] Pending Results Name Type Priority Associated Diagnoses Date /Time Erythropoietin Lab Routine Anemia, unspecified type 04/01/2025 10:43 AM EST Scheduled Orders Name Type Priority Associated Diagnoses Orde r Schedule Erythropoietin Lab Routine Anemia, unspecified type 1 Occurrences starting 04/01/2025 until 04/01/2026 documented as of this encounter Results * (ABNORMAL) Iron and TIBC (04/01/2025 10:43 AM EST) Iron 27(L) 40 - 150 mcg/dL LAB CHEMISTRY METHOD 04/01/2025 1:46 PM EST [facility] TIBC 443 250 - 450 mcg/dL LAB CHEMISTRY METHOD 04/01/2025 1:46 PM EST [facility] Iron Saturation 6(L) 15 - 50 % LAB CHEMISTRY METHOD 04/01/2025 1:46 PM EST [facility] Blood Venous blood specimen / Unknown Venipuncture / Unknown 04/01/2025 10:43 AM EST 04/01/2025 11:35 AM EST Ivett BLANCO LAB BLOOD ORDERABLES Final Re sult [facility] [address] [place] [address], * Lactate dehydrogenase (04/01/2025 10:43 AM EST) LDH 179 120 - 246 unit/L LAB CHEMISTRY METHOD 04/01/2025 1:46 PM [facility] Blood Venous blood specimen / Unknown Venipuncture / Unknown 04/01/2025 10:43 AM EST 04/01/2025 11:35 AM EST us Ivett BLANCO LAB BLOOD ORDERABLES Final Re sult Performing Organization Address City/[facility]/ZIP Co de Phone Number [facility] [address] [place] [address], [place] [phone] * (ABNORMAL) Reticulocyte count (04/01/2025 10:43 AM EST) Retic Ct Abs 0.089 0.030 - 0.090 M/mcL LAB HEMETOLOGY METHOD 04/01/2025 12:25 PM [facility] Retic Ct Pct 1.7 0.7 - 1.7 % LAB HEMETOLOGY METHOD 04/01/2025 12:25 PM [facility] Immature Retic Fract 33.6(H) 2.3 - 15.9 % LAB HEMETOLOGY METHOD 04/01/2025 12:25 PM [facility] Reticulocyte Hemoglobin 22.0(L) >29.0 pcg LAB HEMETOLOGY METHOD 04/01/2025 12:25 PM [facility] Blood Venous blood specimen / Unknown Venipuncture / Unknown 04/01/2025 10:43 AM EST 04/01/2025 11:35 AM EST us Ivett BLANCO LAB BLOOD ORDERABLES Final Re sult [facility] [address] [place] [address], [place] [phone] * (ABNORMAL) Vitamin B12 and folate (04/01/2025 10:43 AM EST) Vitamin B-12 1,269(H) 250 - 900 pcg/mL LAB CHEMISTRY METHOD 04/01/2025 1:46 PM EST [facility] Folate 7.9 2.8 - 17.0 ng/ml LAB CHEMISTRY METHOD 04/01/2025 1:46 PM EST [facility] Blood Venous blood specimen / Unknown Venipuncture / Unknown 04/01/2025 10:43 AM EST 04/01/2025 11:35 AM EST us Ivett BLANCO LAB BLOOD ORDERABLES Final Re sult Performing Organization Address [facility]/ZIP Co de Phone Number [facility] [address] [place] [address], [place] [phone] * (ABNORMAL) Haptoglobin (04/01/2025 10:43 AM EST) [facility] Haptoglobin 327(H) 16 - 200 mg/dL LAB CHEMISTRY METHOD 04/01/2025 1:46 PM EST [facility] Blood Venous blood specimen / Unknown Venipuncture / Unknown 04/01/2025 10:43 AM EST 04/01/2025 11:35 AM EST us Ivett BLANCO LAB BLOOD ORDERABLES Final Re sult [facility] [address] [place] [address], [place] [phone] * (ABNORMAL) Ferritin (04/01/2025 10:43 AM EST) Pathologist [facility] Ferritin 7(L) 8 - 252 ng/mL LAB CHEMISTRY METHOD 04/01/2025 1:52 PM EST [facility] Blood Venous blood specimen / Unknown Venipuncture / Unknown 04/01/2025 10:43 AM EST 04/01/2025 11:35 AM EST us Ivett BLANCO LAB BLOOD ORDERABLES Final Re sult [facility] [address] [place] [address], [place] [phone] * (ABNORMAL) Comprehensive metabolic panel (04/01/2025 10:43 AM EST) Sodium 138 133 - 145 mmol/L LAB CHEMISTRY METHOD 04/01/2025 1:46 PM [facility] Potassium 3.6 3.5 - 5.5 mmol/L LAB CHEMISTRY METHOD 04/01/2025 1:46 PM [facility] Chloride 101 96 - 110 mmol/L LAB CHEMISTRY METHOD 04/01/2025 1:46 PM [facility] CO2 28 21 - 32 mmol/L LAB CHEMISTRY METHOD 04/01/2025 1:46 PM [facility] Anion Gap 9 3 - 11 LAB CHEMISTRY METHOD 04/01/2025 1:46 PM [facility] Glucose 107(H) 70 - 100 mg/dL LAB CHEMISTRY METHOD 04/01/2025 1:46 PM [facility] BUN 16 5 - 25 mg/dL LAB CHEMISTRY METHOD 04/01/2025 1:46 PM [facility] Creatinine 0.89 0.50 - 1.10 mg/dL LAB CHEMISTRY METHOD 04/01/2025 1:46 PM [facility] eGFR 71 >=60 mL/min/1. 73m2 LAB CHEMISTRY METHOD 04/01/2025 1:46 PM [facility] Comment:Calculation based on the Chronic Kidney Disease Epidemiology Collaboration (CKD-EPI) equation refit without adjustment for race. BUN/Creatinine Ratio 18.0 LAB CHEMISTRY METHOD 04/01/2025 1:46 PM [facility] Calcium 9.9 8.5 - 10.5 mg/dL LAB CHEMISTRY METHOD 04/01/2025 1:46 PM [facility] AST (SGOT) 8(L) 10 - 42 unit/L LAB CHEMISTRY METHOD 04/01/2025 1:46 PM [facility] ALT (SGPT) 19 10 - 60 unit/L LAB CHEMISTRY METHOD 04/01/2025 1:46 PM [facility] Alkaline Phosphatase 151(H) 42 - 121 unit/L LAB CHEMISTRY METHOD 04/01/2025 1:46 PM [facility] Total Protein 7.1 6.0 - 8.0 g/dL LAB CHEMISTRY METHOD 04/01/2025 1:46 PM [facility] Albumin 3.5 3.2 - 5.0 g/dL LAB CHEMISTRY METHOD 04/01/2025 1:46 PM [facility] Total Bilirubin 0.4 0.0 - 1.4 mg/dL LAB CHEMISTRY METHOD 04/01/2025 1:46 PM [facility] Blood Venous blood specimen / Unknown Venipuncture / Unknown 04/01/2025 10:43 AM EST 04/01/2025 11:35 AM EST Ivett BLANCO LAB BLOOD ORDERABLES Final Re sult [facility] [address] [place] [address], documented in this encounter Visit Diagnoses Diagnosis Anemia, unspecified type- Primary documented in this encounter Orders Outpatient Referral Count Last Ordered Date Fir st Ordered Date AMB REFERRAL TO HEMATOLOGY / ONCOLOGY 1 09/2024 documented in this encounter Additional Health Concerns Assessment Noted Time PHQ-9 Depression Total Score: 0 03/12/20 25 1:07 PM EDT documented as of this encounter Care Teams Shoe Stock Associate Relationship Specialty Start Date End Date Ariella Huddleston MD [address] [phone] PCP - General Internal Medicine 04/22/24 documented as of this encounter
--- OUTSIDE RECORDS SUMMARY | 2025-04-01 11:00 | XMS_ITS | Encounter Summary ---
Author Organization [facility] Address [address] [place] [address] Care Team Providers Care Director Of Counseling Name Role Phone Ariella Huddleston MD Primary Care Provider [phone] Encounter Details Date Type Department Care Team (Late Contact Info) Description 04/01/2025 11:00 AM EST Lab Draw Station - [facility] [address] [phone] Anemia, unspecified type Social History Tobacco Use Types Packs/Day Years Used Date Smoking Tobacco: Every Day Cigarettes Smokeless Tobacco: Never Alcohol Use Standard Drinks/Week Comments No 0 (1 standard drink = 0.6 oz pur e alcohol) Comments No Sex and Gender Information Value Date Recorded Sex Assigned at Female 02/12/2025 4:03 PM EDT Legal Sex Female 6:15 AM EST Gender Identity Not on file Sexual Orientation Not on file documented as of this encounter Plan of Treatment Upcoming Encounters Date Type Department Care Team (Late Contact Info) Description 04/03/2025 12:30 PM EST Office Visit Internal Medicine - [facility] [address] [place] [phone] Ariella Huddleston MD [address] [place] [phone] 04/14/2025 11:15 AM EST Office Visit Pulmonology - [facility] [address] [place] [phone] Marcelle Tello MD [address] [place] [phone] 05/04/2025 2:00 PM EST Office Visit [facility] Hematology Oncology [address] [place] [phone] Ivett Salinas PA [address] [place] [address] 07/03/2025 11:30 AM EST Office Visit Internal Medicine - [facility] 175 [facility] [address] [place] [phone] Ariella Huddleston MD [address] [place] [phone] Pending Results Name Type Priority Associated Diagnoses Date /Time Erythropoietin Lab Routine Anemia, unspecified type 04/01/2025 10:43 AM EST documented as of this encounter Procedures Procedure Name Priority Date/Time Associated Diagnosis Comments VITAMIN B12 AND FOLATE Routine 10:43 AM EST Anemia, unspecified type CBC WITH AUTO DIFFERENTIAL Routine 04/01/2025 10:43 AM EST Anemia, unspecified type IRON AND TIBC Routine 04/01/2025 10:43 AM EST Anemia, unspecified type RETICULOCYTE COUNT Routine 04/01/2025 10 :43 AM EST Anemia, unspecified type CBC AND DIFFERENTIAL Routine 04/01/2025 10:43 AM EST Anemia, unspecified type LACTATE DEHYDROGENASE Routine 04/01/2025 10:43 AM EST Anemia, unspecified type HAPTOGLOBIN Routine 04/01/2025 10:43 AM EST Anemia, unspecified type FERRITIN Routine 04/01/2025 10:43 AM EST Anemia, unspecified type COMPREHENSIVE METABOLIC PANEL Routine 04/01/2025 10:43 AM EST Anemia, unspecified type documented in this encounter Results * (ABNORMAL) CBC auto differential (04/01/2025 10:43 AM EST) WBC 12.6(H) 4.8 - 10.8 K/mcL LAB HEMETOLOGY METHOD 04/01/2025 12:25 PM [facility] RBC 5.10(H) 3.80 - 4.80 M/mcL LAB HEMETOLOGY METHOD 04/01/2025 12:25 PM [facility] Hemoglobin 9.2(L) 11.5 - 16.0 g/dL LAB HEMETOLOGY METHOD 04/01/2025 12:25 PM [facility] Hematocrit 32.5(L) 35.0 - 47.0 % LAB HEMETOLOGY METHOD 04/01/2025 12:25 PM [facility] MCV 63.6(L) 79.0 - 98.0 FL LAB HEMETOLOGY METHOD 04/01/2025 12:25 PM [facility] MCH 18.0(L) 27.0 - 32.0 pcg LAB HEMETOLOGY METHOD 04/01/2025 12:25 PM [facility] MCHC 28.3(L) 32.0 - 37.0 g/dL LAB HEMETOLOGY METHOD 04/01/2025 12:25 PM [facility] RDW 23.8(H) 11.0 - 15.0 % LAB HEMETOLOGY METHOD 04/01/2025 12:25 PM [facility] Platelets 411(H) 130 - 400 K/mcL LAB HEMETOLOGY METHOD 04/01/2025 12:25 PM [facility] MPV 9.1 7.0 - 11.0 FL LAB HEMETOLOGY METHOD 04/01/2025 12:25 PM [facility] NRBC 0.2 <1.0 % LAB HEMETOLOGY METHOD 04/01/2025 12:25 PM [facility] NRBC Absolute 0.02 <0.10 K/mcL LAB HEMETOLOGY METHOD 04/01/2025 12:25 PM [facility] Neutrophils Relative 69.2 % LAB HEMETOLOGY METHOD 04/01/2025 12:25 PM [facility] Lymphocytes Relative 19.4 % LAB HEMETOLOGY METHOD 04/01/2025 12:25 PM [facility] Monocytes Relative 8.7 % LAB HEMETOLOGY METHOD 04/01/2025 12:25 PM [facility] Eosinophils Relative 1.6 % LAB HEMETOLOGY METHOD 04/01/2025 12:25 PM [facility] Basophils Relative 0.3 % LAB HEMETOLOGY METHOD 04/01/2025 12:25 PM [facility] Immature Granulocytes Relative 0.8 % LAB HEMETOLOGY METHOD 04/01/2025 12:25 PM [facility] Neutrophils Absolute 8.74(H) 1.50 - 7.00 K/mcL LAB HEMETOLOGY METHOD 04/01/2025 12:25 PM [facility] Lymphocytes Absolute 2.45 1.00 - 5.00 K/mcL LAB HEMETOLOGY METHOD 04/01/2025 12:25 PM [facility] Monocytes Absolute 1.10(H) 0.20 - 1.00 K/mcL LAB HEMETOLOGY METHOD 04/01/2025 12:25 PM [facility] Eosinophils Absolute 0.20 0.00 - 0.50 K/mcL LAB HEMETOLOGY METHOD 04/01/2025 12:25 PM [facility] Basophils Absolute 0.04 0.00 - 0.20 K/mcL LAB HEMETOLOGY METHOD 04/01/2025 12:25 PM [facility] Immature Granulocytes Absolute 0.10(H) 0.00 - 0.03 K/mcL LAB HEMETOLOGY METHOD 04/01/2025 12:25 PM EST [facility] Blood Venous blood specimen / Unknown Venipuncture / Unknown 04/01/2025 10:43 AM EST 04/01/2025 11:35 AM EST Ivett BLANCO LAB BLOOD ORDERABLES Final Re sult Performing Organization Address City/[facility]/ZIP Co de Phone Number [facility] [address] [place] [address], [place] [phone] * (ABNORMAL) Iron and TIBC (04/01/2025 10:43 AM EST) Iron 27(L) 40 - 150 mcg/dL LAB CHEMISTRY METHOD 04/01/2025 1:46 PM EST [facility] TIBC 443 250 - 450 mcg/dL LAB CHEMISTRY METHOD 04/01/2025 1:46 PM EST [facility] Iron Saturation 6(L) 15 - 50 % LAB CHEMISTRY METHOD 04/01/2025 1:46 PM EST [facility] Blood Venous blood specimen / Unknown Venipuncture / Unknown 04/01/2025 10:43 AM EST 04/01/2025 11:35 AM EST Ivett [facility]AN[facility] LAB BLOOD ORDERABLES Final Re sult Performing Organization Address City/[facility]/ZIP Co de Phone Number [facility] [address] [place] [address], [place] [phone] * Lactate dehydrogenase (04/01/2025 10:43 AM EST) LDH 179 120 - 246 unit/L LAB CHEMISTRY METHOD 04/01/2025 1:46 PM EST [facility] Blood Venous blood specimen / Unknown Venipuncture / Unknown 04/01/2025 10:43 AM EST 04/01/2025 11:35 AM EST us Ivett BLANCO LAB BLOOD ORDERABLES Final Re sult Performing Organization Address [facility]/ZIP Co de Phone Number [facility] [address] [place] [address], [place] [phone] * (ABNORMAL) Reticulocyte count (04/01/2025 10:43 AM EST) [facility] Retic Ct Abs 0.089 0.030 - 0.090 M/mcL LAB HEMETOLOGY METHOD 04/01/2025 12:25 PM [facility] Retic Ct Pct 1.7 0.7 - 1.7 % LAB HEMETOLOGY METHOD 04/01/2025 12:25 PM [facility] Immature Retic Fract 33.6(H) 2.3 - 15.9 % LAB HEMETOLOGY METHOD 04/01/2025 12:25 PM [facility] Reticulocyte Hemoglobin 22.0(L) >29.0 pcg LAB HEMETOLOGY METHOD 04/01/2025 12:25 PM [facility] Blood Venous blood specimen / Unknown Venipuncture / Unknown 04/01/2025 10:43 AM EST 04/01/2025 11:35 AM EST us Ivett BLAN[facility] LAB BLOOD ORDERABLES Final Re sult Performing Organization Address [facility]/ZIP Co de Phone Number [facility] [address] [place] [address], [place] [phone] * (ABNORMAL) Vitamin B12 and folate (04/01/2025 10:43 AM EST) [facility] Vitamin B-12 1,269(H) 250 - 900 pcg/mL LAB CHEMISTRY METHOD 04/01/2025 1:46 PM [facility] Folate 7.9 2.8 - 17.0 ng/ml LAB CHEMISTRY METHOD 04/01/2025 1:46 PM EST [facility] Blood Venous blood specimen / Unknown Venipuncture / Unknown 04/01/2025 10:43 AM EST 04/01/2025 11:35 AM EST us Ivett [facility]ANCO LAB BLOOD ORDERABLES Final Re sult Performing Organization Address City/[facility]/ZIP Co de Phone Number [facility] [address] [place] [address], [place] [phone] * (ABNORMAL) Haptoglobin (04/01/2025 10:43 AM EST) Haptoglobin 327(H) 16 - 200 mg/dL LAB CHEMISTRY METHOD 04/01/2025 1:46 PM EST [facility] Blood Venous blood specimen / Unknown Venipuncture / Unknown 04/01/2025 10:43 AM EST 04/01/2025 11:35 AM EST us Ivtet [facility] LAB BLOOD ORDERABLES Final Re sult Performing Organization Address City/[facility]/ZIP Co de Phone Number [facility] [address] [place] [address], [place] [phone] * (ABNORMAL) Ferritin (04/01/2025 10:43 AM EST) Ferritin 7(L) 8 - 252 ng/mL LAB CHEMISTRY METHOD 04/01/2025 1:52 PM EST [facility] Blood Venous blood specimen / Unknown Venipuncture / Unknown 04/01/2025 10:43 AM EST 04/01/2025 11:35 AM EST us Ivett [facility]AN[facility] LAB BLOOD ORDERABLES Final Re sult [facility] [address] [place] [address], [place] [phone] * (ABNORMAL) Comprehensive metabolic panel (04/01/2025 10:43 AM EST) Sodium 138 133 - 145 mmol/L LAB CHEMISTRY METHOD 04/01/2025 1:46 PM [facility] Potassium 3.6 3.5 - 5.5 mmol/L LAB CHEMISTRY METHOD 04/01/2025 1:46 PM [facility] Chloride 101 96 - 110 mmol/L LAB CHEMISTRY METHOD 04/01/2025 1:46 PM [facility] CO2 28 21 - 32 mmol/L LAB CHEMISTRY METHOD 04/01/2025 1:46 PM [facility] Anion Gap 9 3 - 11 LAB CHEMISTRY METHOD 04/01/2025 1:46 PM [facility] Glucose 107(H) 70 - 100 mg/dL LAB CHEMISTRY METHOD 04/01/2025 1:46 PM [facility] BUN 16 5 - 25 mg/dL LAB CHEMISTRY METHOD 04/01/2025 1:46 PM [facility] Creatinine 0.89 0.50 - 1.10 mg/dL LAB CHEMISTRY METHOD 04/01/2025 1:46 PM [facility] eGFR 71 >=60 mL/min/1. 73m2 LAB CHEMISTRY METHOD 04/01/2025 1:46 PM [facility] Comment:Calculation based on the Chronic Kidney Disease Epidemiology Collaboration (CKD-EPI) equation refit without adjustment for race. BUN/Creatinine Ratio 18.0 LAB CHEMISTRY METHOD 04/01/2025 1:46 PM [facility] Calcium 9.9 8.5 - 10.5 mg/dL LAB CHEMISTRY METHOD 04/01/2025 1:46 PM [facility] AST (SGOT) 8(L) 10 - 42 unit/L LAB CHEMISTRY METHOD 04/01/2025 1:46 PM [facility] ALT (SGPT) 19 10 - 60 unit/L LAB CHEMISTRY METHOD 04/01/2025 1:46 PM [facility] Alkaline Phosphatase 151(H) 42 - 121 unit/L LAB CHEMISTRY METHOD 04/01/2025 1:46 PM [facility] Total Protein 7.1 6.0 - 8.0 g/dL LAB CHEMISTRY METHOD 04/01/2025 1:46 PM [facility] Albumin 3.5 3.2 - 5.0 g/dL LAB CHEMISTRY METHOD 04/01/2025 1:46 PM [facility] Total Bilirubin 0.4 0.0 - 1.4 mg/dL LAB CHEMISTRY METHOD 04/01/2025 1:46 PM [facility] Blood Venous blood specimen / Unknown Venipuncture / Unknown 04/01/2025 10:43 AM EST 04/01/2025 11:35 AM EST Ivett [facility] LAB BLOOD ORDERABLES Final Re sult [facility] [address] [place] [address], documented in this encounter Visit Diagnoses Diagnosis Anemia, unspecified type documented in this encounter Additional Health Concerns Assessment Noted Time PHQ-9 Depression Total Score: 0 03/12/20 25 1:07 PM EDT documented as of this encounter Care Teams Director Of Counseling Relationship Specialty Start Date End Date Ariella Huddleston MD [address] [phone] PCP - General Internal Medicine 04/22/24 documented as of this encounter
--- NOTE | 2025-04-02 09:48 | A.OFFVIS_ITS ---
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 Her history in our office is little bit complicated. She was in our opioid program and she was suspended from our opioid program 1 year ago for being short with a her pills. She went to her primary care physician and he prescribe her tramadol. She reports tramadol helps moderately to calm down her pain. At the same time she was in this office for the lower back pain being treated with spinal cord stimulator. The trial of spinal cord stimulator at that time went very well she reported 75% pain improvement. It was a trial of thoracic placed leads as well as 16 electrode lead in the lumbar gutter. However when she went for implantation procedure she developed acute bronchospasm and the case was canceled. She was sent to Dr. Spaulding to improve her condition and now she is better however she does not want at this time to go for implantation of spinal cord stimulator. At this time I recommended patient to continue with her PCP with tramadol. Next time she wants to see me the appointment will be done as needed. [facility] Medical History Acute bronchospasm Asthma Chronic pain syndrome Chronic, continuous use of opioids Complex regional pain syndrome i of left lower limb COPD (chronic obstructive pulmonary disease) COVID-19 vaccine series completed Depression Elevated cholesterol GERD (gastroesophageal reflux disease) On beta eulalio at home Osteoarthritis of right knee Pain in left knee Radial tunnel syndrome of left upper extremity Radial tunnel syndrome of right upper extremity Spondylosis of lumbar region without myelopathy or radiculopathy Status post insertion of nerve stimulator Surgical History History of bronchoscopy History of carpal tunnel surgery History of lung surgery Status post total knee replacement, left Social History Household Members: Family Household Members Other:: single lives with daughter and grandaughter Are you a primary health care recruiter to a significant other at home: No Do you presently have visiting nurse or other home services: Yes (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 SUPPORT ENGINEER) Alcohol intake: never Patient Tobacco Use Status: Former Tobacco user Tobacco use type: Cigarette Cigarette Packs Per Day: 1 Cigarettes Per Day: 20.0 Years Smoked: >25 Current occupation: Disabled about 5 years due to musculoskeletal pain Review of Systems Const All systems reviewed & are unremarkable except as noted in HPI and below Physical Exam Vital Signs: Last Vital Signs Pulse 90 04/02/25 09:49 Resp 16 04/02/25 09:49 BP 110/55 L 04/02/25 09:49 Pulse Ox 91 L 04/02/25 09:49 Oxygen Delivery Method Room Air 04/02/25 09:49 BMI result Body Mass Index 28.5 Const General: no acute distress, well developed, alert and awake Nutritional Appearance: average body habitus Eyes Pupils: Equal, round and reactive pupils present EOM: EOMs intact bilaterally Chest Chest palpation & inspection: normal inspection of the chest Resp Effort & Inspection: normal respiratory effort, able to speak in complete sentences, normal respiratory pattern and no audible wheezes Cardio Jugular venous distension: no JVD Back/Spine/Pelvis Other: She is able to walk on her heels as well as on her tiptoes. The range of motions of bilateral knees is very limited. The range of motion of the left knee is only 40?. Right knee range of motion goes up to 90?. There is a well- healed scar on the anterior surface of the left knee. There is thinness of the skin in the projection of the left knee. The scar is very well-healed however the temperature of the skin over the left knee is lower that the temperature of the skin on the right knee. She is able to flex forward and backwards in her lumbar spine. Flexing backwards aggravate her pain in the back more than flexing forward. facet loading test is positive for the pain increase. Her pain is in the projection of the upper sacral bone and lower lumbar spine where she reports severe tenderness on palpation in spinal as well as paraspinal regions Neuro Cranial nerves: Yes Equal, round and reactive pupils present Cognition (Neuro): normal cognition Gait exam (Neuro): Normal gait present Extrem General: Yes full ROM Assessment & Plan Assessment & Plan (1) Status post total knee replacement, left: Code(s): Z96.652 - Presence of left artificial knee joint Category: Surgical (2) Pain in left knee: Code(s): M25.562 - Pain in left knee Category: Medical (3) Spondylosis of lumbar region without myelopathy or radiculopathy: Code(s): M47.816 - Spondylosis without myelopathy or radiculopathy, lumbar region Category: Medical (4) Chronic pain syndrome: Code(s): G89.4 - Chronic pain syndrome Category: Medical (5) Osteoarthritis of right knee: Code(s): M17.11 - Unilateral primary osteoarthritis, right knee Category: Medical (6) Chronic, continuous use of opioids: Code(s): F11.90 - Opioid use, unspecified, uncomplicated Category: Medical (7) Complex regional pain syndrome i of left lower limb: Code(s): G90.522 - Complex regional pain syndrome I of left lower limb Category: Medical Plan She was suspended with our opioid program. Now she is under care of PCP who prescribes her tramadol. She had a trial of spinal cord stimulator. She reports 75% improvement on spinal cord stimulator. She went for implantation of the spinal cord stimulator and before incision she developed severe bronchospasm. The case was canceled. She was treated by [facility] pulmonology (Dr. Spaulding) and Cardiology (Dr. Restrepo) in her condition in greatly improved. while under treatment with pulmonology and Cardiology her psychological evaluation . At this time I was asking her whether or not she wants to go for yet another attempt to implant her spinal cord stimulator and she stated that she does not want to do that. Therefore the procedure be considered on as needed basis. She will continue with her PCP who prescribed her tramadol. Coding Level of Care Code Est Pt Level 3 (64771) Diagnoses Status post total knee replacement, left Z96.652 Pain in left knee M25.562 Spondylosis of lumbar region without myelopathy or radiculopathy M47.816 Chronic pain syndrome G89.4 Osteoarthritis of right knee M17.11 Chronic, continuous use of opioids F11.90 Complex regional pain syndrome i of left lower limb G90.522
[2025-04-02 09:49] VITALS: BP 110/55; PULSE 90; RESP 16; O2SAT 91; BMI 28.5
--- OUTSIDE RECORDS SUMMARY | 2025-04-02 11:00 | XMS_ITS ---
Author Name [facility] Organization Unknown Care Team Organization Name Specialty Phone Email Start Date End Da te [facility] Primary Care 04/04/2022 01/14/20 24
--- OUTSIDE RECORDS SUMMARY | 2025-04-02 11:00 | XMS_ITS | Clinical Summary ---
Author Organization [facility] Address [address] [place] [address] Phone Care Team Providers Care Steam Cleaner Name Role Phone Khushboo Huddleston MD Primary Care Provider [phone] Allergies No known active allergies Medications theophylline (Liam-24) 400 mg 24 hr capsule Take 1 capsule (400 mg total) by mouth. 03/27/20 22 Active hydrocortisone 2.5 % cream 08/09/19 24 Active hydrALAZINE (APRESOLINE) 25 mg tablet Take 1 tablet (25 mg total) by mouth 2 (two) times a day. 04/04/20 22 Active docusate sodium (COLACE) 100 mg capsule Take 1 capsule (100 mg total) by mouth 2 (two) times a day. 08/06/19 21 Active diazePAM (VALIUM) 2 mg tablet Active doxycycline (ADOXA) 100 mg tablet Take 1 tablet (100 mg total) by mouth 2 (two) times a day. for 7 days 12/10/19 24 Active Anti-DiarrheaL, loperamide, 2 mg tablet 10/04/19 24 Active simethicone (MYLICON) 80 mg chewable tablet CHEW AND SWALLOW 1 TABLET BY MOUTH THREE TIMES DAILY FOR 7 DAYS 10/04/19 24 Active ondansetron (ZOFRAN) 4 mg tablet Take 1 tablet (4 mg total) by mouth every 8 (eight) hours. for 7 days 10/04/19 24 Active pravastatin (PRAVACHOL) 40 mg tablet Take 1 tablet (40 mg total) by mouth 1 (one) time each day. 90 tablet 3 06/21/19 25 Active omeprazole (PriLOSEC) [address] capsule Take 1 capsule (20 mg total) by mouth 1 (one) time each day. 90 capsule 06/21/19 25 Active NIFEdipine CC (ADALAT CC) 60 mg 24 hr tablet TAKE 1 TABLET BY MOUTH DAILY 90 tablet 1 07/11/19 25 Active chlorthalidone (HYGROTON) 25 mg tablet Take 1 tablet (25 mg total) by mouth 1 (one) time each day. 90 tablet 1 09/06/19 25 Active calcium carbonate-vitam in D 500 mg-5 mcg (200 unit) per tablet Take 1 tablet by mouth 2 (two) times a day. 180 each 12/02/19 25 2025 Active albuterol HFA (Ventolin HFA) 90 mcg/actuation inhaler Inhale 2 puffs by mouth every 6 (six) hours if needed for wheezing. 6.7 g 12/10/192025 Active fluticasone-ume clidinium-vilan terol (Trelegy Ellipta) 200-62.5-25 mcg inhaler Inhale 1 puff (200 mcg total) by mouth 1 (one) time each day. Rinse mouth with water after use to reduce aftertaste and incidence of candidiasis. Do not swallow. 1 each 12/10/19 25 2025 Active acetaminophen (TYLENOL) 325 mg tablet TAKE 2 TABLETS BY MOUTH EVERY 6 HOURS NEEDED FOR MILD PAIN. NOT TO EXCEED 4000 MG DAILY 09/12/19 Active Plavix 75 mg tablet Take 1 tablet (75 mg total) by mouth. 09/12/19 Active ibuprofen (ADVIL,MOTRIN) 800 mg tablet TAKE 1 TABLET BY MOUTH EVERY 8 HOURS WITH FOOD NEEDED 07/09/19 Active metoprolol tartrate (LOPRESSOR) 50 mg tablet TAKE 1 TABLET(50 MG) BY MOUTH TWICE DAILY 60 tablet 12/19/19 25 Active traMADoL (ULTRAM) 50 mg tablet Take 1 tablet (50 mg total) by mouth 2 (two) times a day if needed for severe pain. Max Daily Amount: 100 mg 56 tablet 4 01/08/20 25 Active cyclobenzaprine (FLEXERIL) 5 mg tablet TAKE 1 TABLET BY MOUTH DAILY NEEDED FOR MUSCLE SPASMS 30 tablet 01/13/20 25 Active aspirin 81 mg EC tablet Take 1 tablet (81 mg total) by mouth 1 (one) time each day. 90 tablet 2 01/17/20 25 Active roflumilast (DALIRESP) 500 mcg tablet Take 1 tablet (500 mcg total) by mouth 1 (one) time each day. 30 tablet 11 01/20/20 25 Active montelukast (SINGULAIR) 10 mg tablet Take 1 tablet (10 mg total) by mouth at bedtime. 90 tablet 11 01/21/20 25 Active potassium chloride (KLOR-CON M10) 10 mEq CR tablet Take 1 tablet (10 mEq total) by mouth 1 (one) time each day. 30 tablet 1 02/10/20 25 Active cetirizine (ZyrTEC) 10 mg tablet Take 1 tablet (10 mg total) by mouth 1 (one) time each day. 30 tablet 11 02/10/20 25 Active methIMAzole (TAPAZOLE) 5 mg tablet TAKE 1 TABLET BY MOUTH DAILY 30 tablet 5 02/13/20 25 Active levoFLOXacin (LEVAQUIN) 750 mg tabletIndicatio ns:bacterial pneumonia Take 1 tablet (750 mg total) by mouth 1 (one) time each day. 7 tablet 02/19/20 25 Active Additional Information Patient not taking.Reported on 04/01/2025 ketoconazole (NIZORAL) 2 % cream Apply topically 2 (two) times a day. 30 g 2 03/12/20 25 Active hydrOXYzine HCL (ATARAX) 10 mg tabletIndicatio ns:Anxiety Take 1 tablet (10 mg total) by mouth 3 (three) times a day. 60 tablet 3 03/12/20 25 Active amitriptyline (ELAVIL) 25 mg tablet TAKE 1 TABLET BY MOUTH AT BEDTIME 90 tablet 1 03/13/20 25 Active ketoconazole (NIZORAL) 2 % cream 08/09/19 24 2024 Discontinued(R eorder) amitriptyline (ELAVIL) 25 mg tablet TAKE 1 TABLET BY MOUTH AT BEDTIME 90 tablet 1 06/23/19 25 2024 Discontinued clotrimazole (LOTRIMIN) 1 % cream Apply topically 2 (two) times a day. 30 g 2 12/02/19 25 2024 predniSONE (DELTASONE) 10 mg tabletIndicatio ns:COPD exacerbation,as thma exacerbation Take 4 tablets (40 mg total) by mouth 1 (one) time each day for 4 days, THEN 3 tablets (30 mg total) 1 (one) time each day for 4 days, THEN 2 tablets (20 mg total) 1 (one) time each day for 4 days, THEN 1 tablet (10 mg total) 1 (one) time each day for 4 days. 40 each 02/19/20 25 2024 Discontinued(E xpired) predniSONE (DELTASONE) 10 mg tabletIndicatio ns:COPD exacerbation,as thma exacerbation Take 4 tablets (40 mg total) by mouth 1 (one) time each day for 4 days, THEN 3 tablets (30 mg total) 1 (one) time each day for 4 days, THEN 2 tablets (20 mg total) 1 (one) time each day for 4 days, THEN 1 tablet (10 mg total) 1 (one) time each day for 4 days. 40 each 03/10/20 25 2024 Additional Information Patient not taking.Reported on 04/01/2025 azithromycin (ZITHROMAX) 250 mg tablet Take 2 tablets (500 mg total) by mouth 1 (one) time each day for 1 day, THEN 1 tablet (250 mg total) 1 (one) time each day for 4 days. 6 each 03/12/20 25 2024 Hospital, Clinic, or Other Facility Administered Medication Ordered Dose Route Frequency Start Date End Date Status omalizumab syringe 450 mgIndications:Severe persistent asthma without complication ([facility] V28) 450 mg subQ Every 28 days 12/24/2024 Active omalizumab syringe 450 mgIndications:Eosinophi lic asthma 450 mg subQ Every 14 days 02/18/2025 08/01/2028 Active albuterol 2.5 mg /3 mL (0.083 %) nebulizer solution 2.5 mgIndications:Eosinophi lic asthma,Severe persistent asthma with acute exacerbation ([facility] V28) 2.5 mg nebu Once 02/18/2025 Active omalizumab syringe 450 mgIndications:Eosinophi lic asthma 450 mg subQ Every 14 days 03/10/2025 Active Active Problems Problem Noted Date Diagnosed Date Major depressive disorder, s nhan episode, moderate ([facility] V24, [facility] V28) 03/12/2025 Assessment & Plan (03/12/2025 6:00 PM EDT): Orders: Comprehensive metabolic panel; Future Thyroid stimulating hormone with reflex to free t4 and free t3; Future Lipid panel with reflex to direct LDL; Future Cerebral aneurysm without rupture 12/24/2024 Class 1 obesity 12/24/2024 Aneurysm of intracranial por tion of right internal carotid artery 07/08/2024 Carpal tunnel syndrome 03/13/2024 COPD (chronic obstructive pu lmonary disease) ([facility] V24, [facility] V28) 12/10/2023 Assessment & Plan (03/12/2025 6:00 PM EDT): Hyperlipidemia 01/23/2018 Assessment & Plan (03/12/2025 6:00 PM EDT): Hypertension 01/23/2018 Assessment & Plan (03/12/2025 6:00 PM EDT): Asthma 10/09/2017 Hyperthyroidism 06/19/2017 Osteoarthritis 03/01/2017 Skin lesions 03/01/2017 Pulmonary nodules 11/03/2016 Depression 08/26/2015 Eczema 05/18/2015 Vitamin D deficiency 02/06/2013 GERD (gastroesophageal reflux disease) 3 Encounters Date Type Department Care Team Description 04/01/2025 11:00 AM EST Lab Draw Station - [facility] [address] [facility] [address] [place] [phone] Anemia, unspecified type 04/01/2025 10:00 AM EST Office Visit [facility] Hematology Oncology [address] [place] [phone] Ivett Salinas PA Anemia, unspecified type (Primary Dx) 03/13/2025 Results Follow-Up Internal Medicine [facility] [address] [facility] [address] [place] [phone] Khushboo Huddleston MD 03/12/2025 1:00 PM EDT Office Visit Internal Medicine - [address] [phone] Khushboo Huddleston MD Major depressive disorder, single episode, moderate ([facility] V24, [facility] V28) (Primary Dx); Anxiety; Anemia, unspecified type; Primary hypertension; Mixed hyperlipidemia; Chronic obstructive pulmonary disease, unspecified COPD type ([facility] V24, [facility] V28) 03/10/2025 10:45 AM EDT Procedure visit Pulmonology [address] [phone] Eosinophilic asthma 03/10/2025 10:45 AM EDT Office Visit Pulmonology [address] [phone] Marcelle Tello MD Eosinophilic asthma (Primary Dx); Obesity (BMI 30-39.9); Severe persistent asthma with acute exacerbation ([facility] V28) 03/10/2025 Results Follow-Up Endocrinology - [address] [phone] Willow Luna PA 03/05/2025 11:13 AM EDT - 03/05/2025 11:59 PM EDT Hospital Encounter [facility] Ultrasound [address] [place] [address] Thyroid nodule Discharge Disposition: Home or Self Care 02/18/2025 10:00 AM EDT Office Visit Pulmonology [address] [phone] Marcelle Tello MD Eosinophilic asthma (Primary Dx); Severe persistent asthma with acute exacerbation ([facility] V28); Acute cough; Upper respiratory tract infection, unspecified type 02/05/2025 11:00 AM EDT Office Visit Endocrinology [address] [phone] Willow Luna PA Hyperthyroidism (Primary Dx); Thyroid nodule from Last 3 Months Immunizations Immunization Administration Dates Next Due Influenza trivalent, with pr eservative (Fluzone; Afluria) 6mo and older 02/20/2023,03/18/2014,02/21/2013,03/07 Pneumococcal conjugate 13 va lent (Prevnar 13, PCV13) 2mo and older 04/29/2015 Pneumococcal polysaccharide 23 valent (Pneumovax 23) 2yo and older 04/03/2017,02/21/2013 Td, Unspecified 04/27/2004 Tdap Tetanus diptheria acell ular pertussis (Boostrix; Adacel) 7yo and older 11/20/2012 Surgical History Surgery Date Site/Laterality Comments HYSTERECTOMY 2005 PROCEDURE: HISTORICAL HYSTERECTOMY; COMMENT: total hysterectomy for AUB COLONOSCOPY PROCEDURE: HISTORICAL COLONOSCOPY SHOULDER SURGERY Right PROCEDURE: HISTORICAL SHOULDER SURGERY; COMMENT: rotator cuff surgery BACK SURGERY PROCEDURE: HISTORICAL BACK SURGERY; COMMENT: lumbar CARPAL TUNNEL RELEASE PROCEDURE: HISTORICAL CARPAL TUNNEL REL Medical History Medical History Date Comments Asthma DX:Asthma Arthritis DX:Arthritis Depression 08/26/2015 DX:Depression Eczema 05/18/2015 DX:Eczema GERD (gastroesophageal reflux disease) 11/21/2012 DX:GERD (gastroesophageal reflux disease) Hyperlipidemia 01/23/2018 DX:Hyperlipidemi a Hypertension 01/23/2018 DX:Hypertension Hyperthyroidism 06/19/2017 DX:Hyperthyroidi sm Osteoarthritis 03/01/2017 DX:Osteoarthriti s Pulmonary nodules 11/03/2016 DX:Pulmonary n odules Skin lesions 03/01/2017 DX:Skin lesions Vitamin D deficiency 02/06/2013 DX:Vitamin D deficiency Family History Medical History Relation Name Comments Arthritis Brother Hypertension Father Arthritis Mother Breast cancer Mother Hypertension Mother Other: blood clot Mother Breast cancer Mother's side aunt Relation Name Status Comments Brother Alive Daughter Alive Father Alive Mother Alive Mother's side Sister Alive Son Alive Social History Tobacco Use Types Packs/Day Years [...] on file Sexual Orientation Not on file Obstetrics History Last Filed Vital Signs Vital Sign Reading Time Taken Comments Blood Pressure 118/64 04/01/2025 10:06 AM EST Pulse 81 04/01/2025 10:06 AM EST Temperature 36.6 C (97.8 F) 04/01/2025 10:06 AM EST Respiratory Rate 18 03/12/2025 1:08 PM EDT Oxygen Saturation 96% 04/01/2025 10:06 AM EST Inhaled Oxygen Concentration - - Weight 68.5 kg (151 lb) 04/01/2025 10:06 AM EST Height 154.9 cm (5' 1 ) 04/01/2025 10:06 AM EST Body Mass Index 28.53 04/01/2025 10:06 AM EST Plan of Treatment Upcoming Encounters Date Type Department Care Team (Late st Contact Info) Description 04/03/2025 12:30 PM EST Office Visit Internal Medicine - [place] [address] [phone] Khushboo Huddleston MD [address] [place] [phone] 04/14/2025 11:15 AM EST Office Visit Pulmonology - [place] [address] [phone] Marcelle Tello MD [address] [place] [phone] 05/04/2025 2:00 PM EST Office Visit [facility] Hematology Oncology [address] [place] [phone] Ivett Salinas PA [address] [place] [address] 07/03/2025 11:30 AM EST Office Visit Internal Medicine - [place] [address] [phone] Khushboo Huddleston MD [address] [place] [phone] Health Maintenance Due Date Last Done Comments Colorectal Cancer Screening: Colonoscopy 1955 RSV Immunization Adult Patients (1 - Risk 50-74 years 1-dose series) 2006 Zoster Vaccines (1 of 2) 2006 Pneumococcal Vaccine: 50+ Years (3 of 3 - PCV20 or PCV21) 04/03/2022 04/03/2017, 04/29/2015, 02/21/2013 Falls Risk Assessment 04/30/2022 Osteoporosis Screening (Bone Density Screening) 04/30/2022 Social Influencers of Health Screening 04/30/2022 DTaP,Tdap,and Td Vaccines (3 - Td or Tdap) 11/20/2022 11/20/2012, 04/27/2004 COVID-19 Vaccine (4 - season) 2025 06/05/2021, 10/09/2020, 09/18/2020 Influenza Vaccine (#1) 2025 , 03/18/2014, 02/21/2013, Additional history exists Breast Cancer Screening 10/09/2025 10/10/19 24, 10/10/2023, 11/10/2021, Additional history exists Medicare Annual Wellness Visit 03/12/2026 03/12/2025 Hypertension/CHF/CAD Annual BMP Blood Test 04/01/2026 04/01/2025, 03/13/2025, 12/10/2023, Additional history exists Cholesterol Screening (Lipid Panel) 03/13/2030 03/13/2025, 02/23/2023 Hepatitis C Screening Completed 12/10/2023 Depression Screening Completed 03/12/2025 HIB Vaccines Aged Out No longer eligi ble based on patient's age to complete this topic HPV Vaccines Aged Out No longer eligi ble based on patient's age to complete this topic Hepatitis A Vaccines Aged Out No long er eligible based on patient's age to complete this topic Hepatitis B Vaccines Aged Out No long er eligible based on patient's age to complete this topic IPV Vaccines Aged Out No longer eligi ble based on patient's age to complete this topic MMR Vaccines Aged Out No longer eligi ble based on patient's age to complete this topic Meningococcal ACWY Vaccine Aged Out N o longer eligible based on patient's age to complete this topic Meningococcal B Vaccine Aged Out No l onger eligible based on patient's age to complete this topic RSV Immunization Patients Under 20 months Aged Out No longer eligible based on patient's age to complete this topic Varicella Vaccines Aged Out No longer eligible based on patient's age to complete this topic Procedures Procedure Name Priority Date/Time Associated Diagnosis Comments CBC WITH AUTO DIFFERENTIAL Routine 04/01/2025 10:43 AM EST Anemia, unspecified type IRON AND TIBC Routine 04/01/2025 10:43 AM EST Anemia, unspecified type LACTATE DEHYDROGENASE Routine 04/01/2025 10:43 AM EST Anemia, unspecified type RETICULOCYTE COUNT Routine 04/01/2025 10 :43 AM EST Anemia, unspecified type VITAMIN B12 AND FOLATE Routine 10:43 AM EST Anemia, unspecified type HAPTOGLOBIN Routine 04/01/2025 10:43 AM EST Anemia, unspecified type FERRITIN Routine 04/01/2025 10:43 AM EST Anemia, unspecified type COMPREHENSIVE METABOLIC PANEL Routine 04/01/2025 10:43 AM EST Anemia, unspecified type CBC AND DIFFERENTIAL Routine 04/01/2025 10:43 AM EST Anemia, unspecified type TRIIODOTHYRONINE FREE Routine 03/13/2025 9:03 AM EDT Major depressive disorder, single episode, moderate (CMS/HCC V24, CMS/HCC V28) Anxiety Anemia, unspecified type FREE THYROXINE WITH REFLEX TO FREE TRIIODOTHYRONINE Routine 03/13/2025 9:03 AM EDT Major depressive disorder, single episode, moderate (CMS/HCC V24, CMS/HCC V28) Anxiety Anemia, unspecified type COMPREHENSIVE METABOLIC PANEL Routine 03/13/2025 9:03 AM EDT Major depressive disorder, single episode, moderate (CMS/HCC V24, CMS/HCC V28) Anxiety Anemia, unspecified type THYROID STIMULATING HORMONE WITH REFLEX TO FREE T4 AND FREE T3 Routine 03/13/2025 9:03 AM EDT Major depressive disorder, single episode, moderate (CMS/HCC V24, CMS/HCC V28) Anxiety Anemia, unspecified type LIPID PANEL WITH REFLEX TO DIRECT LDL Routine 03/13/2025 9:03 AM EDT Major depressive disorder, single episode, moderate (CMS/HCC V24, CMS/HCC V28) Anxiety Anemia, unspecified type SIX MINUTE WALK TEST Routine 03/10/2025 11:54 AM EDT Eosinophilic asthma US HEAD NECK SOFT TISSUE Routine 025 11:43 AM EDT Thyroid nodule CBC WITH AUTO DIFFERENTIAL Routine 02/05/2025 11:56 AM EDT Hyperthyroidism THYROID STIMULATING HORMONE WITH REFLEX TO FREE T4 AND FREE T3 Routine 02/05/2025 11:56 AM EDT Hyperthyroidism CBC AND DIFFERENTIAL Routine 02/05/2025 11:56 AM EDT Hyperthyroidism HM HEPATITIS C SCREENING Routine 12/10/2023 ERIK SCREENING DIGITAL Routine 10/10/2023 5:20 PM EDT Encounter for screening mammogram for malignant neoplasm of breast from Last 3 Months or Most Recently Relevant to Health Maintenance Results * (ABNORMAL) Vitamin B12 and folate (04/01/2025 10:43 AM EST) Vitamin B-12 1,269(H) 250 - 900 pcg/mL LAB CHEMISTRY METHOD 04/01/2025 1:[address] [facility] Folate 7.9 2.8 - 17.0 ng/ml LAB CHEMISTRY METHOD 04/01/2025 1:[address] [facility] Blood Venous blood specimen / Unknown Venipuncture / Unknown 04/01/2025 10:43 AM EST 04/01/2025 11:35 AM EST us Ivett BLANCO LAB BLOOD ORDERABLES Final Re sult [facility] [address] [place] [address], * (ABNORMAL) CBC auto differential (04/01/2025 10:43 AM EST) Only the most recent of2 resultswithin the time period is included. WBC 12.6(H) 4.8 - 10.8 K/mcL LAB HEMETOLOGY METHOD 04/01/2025 12:25 PM [facility] RBC 5.10(H) 3.80 - 4.80 M/mcL LAB HEMETOLOGY METHOD 04/01/2025 12:25 PM [facility] Hemoglobin 9.2(L) 11.5 - 16.0 g/dL LAB HEMETOLOGY METHOD 04/01/2025 12:25 PM [facility] Hematocrit 32.5(L) 35.0 - 47.0 % LAB HEMETOLOGY METHOD 04/01/2025 12:25 PM [facility] MCV 63.6(L) 79.0 - 98.0 FL LAB HEMETOLOGY METHOD 04/01/2025 12:25 PM [facility] MCH 18.0(L) 27.0 - 32.0 pcg LAB HEMETOLOGY METHOD 04/01/2025 12:25 PM [facility] MCHC 28.3(L) 32.0 - 37.0 g/dL LAB HEMETOLOGY METHOD 04/01/2025 12:25 PM [facility] RDW 23.8(H) 11.0 - 15.0 % LAB HEMETOLOGY METHOD 04/01/2025 12:25 PM [facility] Platelets 411(H) 130 - 400 K/mcL LAB HEMETOLOGY METHOD 04/01/2025 12:25 PM [facility] MPV 9.1 7.0 - 11.0 FL LAB HEMETOLOGY METHOD 04/01/2025 12:25 PM [facility] NRBC 0.2 <1.0 % LAB HEMETOLOGY METHOD 04/01/2025 12:25 PM [facility] NRBC Absolute 0.02 <0.10 K/mcL LAB HEMETOLOGY METHOD 04/01/2025 12:25 PM [facility] Neutrophils Relative 69.2 % LAB HEMETOLOGY METHOD 04/01/2025 12:25 PM [facility] Lymphocytes Relative 19.4 % LAB HEMETOLOGY METHOD 04/01/2025 12:25 PM [facility] Monocytes Relative 8.7 % LAB HEMETOLOGY METHOD 04/01/2025 12:25 PM [facility] Eosinophils Relative 1.6 % LAB HEMETOLOGY METHOD 04/01/2025 12:25 PM [facility] Basophils Relative 0.3 % LAB HEMETOLOGY METHOD 04/01/2025 12:25 PM [facility] Immature Granulocytes Relative 0.8 % LAB HEMETOLOGY METHOD 04/01/2025 12:25 PM [facility] Neutrophils Absolute 8.74(H) 1.50 - 7.00 K/mcL LAB HEMETOLOGY METHOD 04/01/2025 12:25 PM [facility] Lymphocytes Absolute 2.45 1.00 - 5.00 K/mcL LAB HEMETOLOGY METHOD 04/01/2025 12:25 PM [facility] Monocytes Absolute 1.10(H) 0.20 - 1.00 K/mcL LAB HEMETOLOGY METHOD 04/01/2025 12:25 PM [facility] Eosinophils Absolute 0.20 0.00 - 0.50 K/mcL LAB HEMETOLOGY METHOD 04/01/2025 12:[address] [facility] Basophils Absolute 0.04 0.00 - 0.20 K/mcL LAB HEMETOLOGY METHOD 04/01/2025 12:[address] [facility] Immature Granulocytes Absolute 0.10(H) 0.00 - 0.03 K/mcL LAB HEMETOLOGY METHOD 04/01/2025 12:[address] [facility] Blood Venous blood specimen / Unknown Venipuncture / Unknown 04/01/2025 10:43 AM EST 04/01/2025 11:35 AM EST us Ivett BLANCO LAB BLOOD ORDERABLES Final Re sult Performing Organization Address City/[facility]/ZIP Co de Phone Number [facility] [address] [place] [address], [place] [phone] * (ABNORMAL) Iron and TIBC (04/01/2025 10:43 AM EST) Pathologist [facility] Iron 27(L) 40 - 150 mcg/dL LAB CHEMISTRY METHOD 04/01/2025 1:[address] [facility] TIBC 443 250 - 450 mcg/dL LAB CHEMISTRY METHOD 04/01/2025 1:46 PM [facility] Iron Saturation 6(L) 15 - 50 % LAB CHEMISTRY METHOD 04/01/2025 1:[address] [facility] Blood Venous blood specimen / Unknown Venipuncture / Unknown 04/01/2025 10:43 AM EST 04/01/2025 11:35 AM EST us Ivett BLANCO LAB BLOOD ORDERABLES Final Re sult [facility] [address] [place] [address], [place] [phone] * (ABNORMAL) Reticulocyte count (04/01/2025 10:43 AM EST) Retic Ct Abs 0.089 0.030 - 0.090 M/mcL LAB HEMETOLOGY METHOD 04/01/2025 12:25 PM [facility] Retic Ct Pct 1.7 0.7 - 1.7 % LAB HEMETOLOGY METHOD 04/01/2025 12:25 PM [facility] Immature Retic Fract 33.6(H) 2.3 - 15.9 % LAB HEMETOLOGY METHOD 04/01/2025 12:25 PM [facility] Reticulocyte Hemoglobin 22.0(L) >29.0 pcg LAB HEMETOLOGY METHOD 04/01/2025 12:25 PM [facility] Blood Venous blood specimen / Unknown Venipuncture / Unknown 04/01/2025 10:43 AM EST 04/01/2025 11:35 AM EST Ivett BLANCO LAB BLOOD ORDERABLES Final Re sult Performing Organization Address City/[facility]/ZIP Co de Phone Number [facility] [address] [place] [address], [place] [phone] * Lactate dehydrogenase (04/01/2025 10:43 AM EST) [facility] LDH 179 120 - 246 unit/L LAB CHEMISTRY METHOD 04/01/2025 1:46 PM [facility] Blood Venous blood specimen / Unknown Venipuncture / Unknown 04/01/2025 10:43 AM EST 04/01/2025 11:35 AM EST Ivett BLANCO LAB BLOOD ORDERABLES Final Re sult [facility] [address] [place] [address], [place] [phone] * (ABNORMAL) Haptoglobin (04/01/2025 10:43 AM EST) [facility] Haptoglobin 327(H) 16 - 200 mg/dL LAB CHEMISTRY METHOD 04/01/2025 1:[address] [facility] Blood Venous blood specimen / Unknown Venipuncture / Unknown 04/01/2025 10:43 AM EST 04/01/2025 11:35 AM EST Ivett BLANCO LAB BLOOD ORDERABLES Final Re sult Performing Organization Address City/[facility]/ZIP Co de Phone Number [facility] [address] [place] [address], [place] [phone] * (ABNORMAL) Ferritin (04/01/2025 10:43 AM EST) [facility] Ferritin 7(L) 8 - 252 ng/mL LAB CHEMISTRY METHOD 04/01/2025 1:[address] [facility] Blood Venous blood specimen / Unknown Venipuncture / Unknown 04/01/2025 10:43 AM EST 04/01/2025 11:35 AM EST Ivett BLANCO LAB BLOOD ORDERABLES Final Re sult Performing Organization Address [facility]/ZIP Co de Phone Number [facility] [address] [place] [address], [place] [phone] * (ABNORMAL) Comprehensive metabolic panel (04/01/2025 10:43 AM EST) Only the most recent of2 resultswithin the time period is included. [facility] Sodium 138 133 - 145 mmol/L LAB CHEMISTRY METHOD 04/01/2025 1:[address] [facility] Potassium 3.6 3.5 - 5.5 mmol/L LAB CHEMISTRY METHOD 04/01/2025 1:[address] [facility] Chloride 101 96 - 110 mmol/L LAB CHEMISTRY METHOD 04/01/2025 1:[address] [facility] CO2 28 21 - 32 mmol/L LAB CHEMISTRY METHOD 04/01/2025 1:46 PM [facility] Anion Gap 9 3 - 11 LAB CHEMISTRY METHOD 04/01/2025 1:46 PM [facility] Glucose 107(H) 70 - 100 mg/dL LAB CHEMISTRY METHOD 04/01/2025 1:46 PM [facility] BUN 16 5 - 25 mg/dL LAB CHEMISTRY METHOD 04/01/2025 1:46 PM [facility] Creatinine 0.89 0.50 - 1.10 mg/dL LAB CHEMISTRY METHOD 04/01/2025 1:46 PM [facility] eGFR 71 >=60 mL/min/1. 73m2 LAB CHEMISTRY METHOD 04/01/2025 1:46 PM [facility] Comment:Calculation based on the Chronic Kidney Disease Epidemiology Collaboration (CKD-EPI) equation refit without adjustment for race. BUN/Creatinine Ratio 18.0 LAB CHEMISTRY METHOD 04/01/2025 1:46 PM [facility] Calcium 9.9 8.5 - 10.5 mg/dL LAB CHEMISTRY METHOD 04/01/2025 1:46 PM [facility] AST (SGOT) 8(L) 10 - 42 unit/L LAB CHEMISTRY METHOD 04/01/2025 1:46 PM [facility] ALT (SGPT) 19 10 - 60 unit/L LAB CHEMISTRY METHOD 04/01/2025 1:46 PM [facility] Alkaline Phosphatase 151(H) 42 - 121 unit/L LAB CHEMISTRY METHOD 04/01/2025 1:46 PM [facility] Total Protein 7.1 6.0 - 8.0 g/dL LAB CHEMISTRY METHOD 04/01/2025 1:46 PM [facility] Albumin 3.5 3.2 - 5.0 g/dL LAB CHEMISTRY METHOD 04/01/2025 1:46 PM [facility] Total Bilirubin 0.4 0.0 - 1.4 mg/dL LAB CHEMISTRY METHOD 04/01/2025 1:[address] [facility] Blood Venous blood specimen / Unknown Venipuncture / Unknown 04/01/2025 10:43 AM EST 04/01/2025 11:35 AM EST us Ivett BLANCO LAB BLOOD ORDERABLES Final Re sult Performing Organization Address [facility]/ZIP Co de Phone Number [facility] [address] [place] [address], [place] [phone] * (ABNORMAL) Thyroid stimulating hormone with reflex to free t4 and free t3 (03/13/2025 9:03 AM EDT) Only the most recent of2 resultswithin the time period is included. TSH 0.24(L) 0.40 - 4.00 mcIU/mL LAB CHEMISTRY METHOD 03/13/2025 11:[address] [facility] Blood Venous blood specimen / Unknown Venipuncture / Unknown 03/13/2025 9:03 AM EDT 03/13/2025 9:03 AM EDT Khushboo Huddleston MD LAB BLOOD ORDERABLES Final Res ult Performing Organization Address [facility]/ZIP Co de Phone Number [facility] [address] [place] [address], [place] [phone] * Free thyroxine with reflex to free triiodothyronine (03/13/2025 9:03 AM EDT) Free T4 1.20 0.70 - 1.80 ng/dL LAB CHEMISTRY METHOD 03/13/2025 12:[address] [facility] Blood Venous blood specimen / Unknown Venipuncture / Unknown 03/13/2025 9:03 AM EDT 03/13/2025 9:03 AM EDT us Khushboo Huddleston MD LAB BLOOD ORDERABLES Final Res ult Performing Organization Address City/[facility]/ZIP Co de Phone Number [facility] [address] [place] [address], [place] [phone] * Lipid panel with reflex to direct LDL (03/13/2025 9:03 AM EDT) [employer] Signature Cholesterol 180 0 - 200 mg/dL LAB CHEMISTRY METHOD 03/13/2025 11:[address] [facility] Triglycerides 115 0 - 150 mg/dL LAB CHEMISTRY METHOD 03/13/2025 11:[address] [facility] HDL 89 >=40 mg/dL LAB CHE[facility]STRY [facility] LDL Calculated 68 0 - 100 mg/dL LAB CHEMISTRY METHOD 03/13/2025 11:[address] [facility] Comment:Estimated LDL Calcul ated using equation: Total cholesterol - HDL cholesterol - (Triglycerides/5) VLDL Cholesterol Alvaro 23 mg/dL LAB CHEMISTRY METHOD 03/13/2025 11:[address] [facility] Non HDL Chol. (LDL+VLDL) 91 <145 mg/dL LAB CHEMISTRY METHOD 03/13/2025 11:10 AM [facility] Chol/HDL Ratio 2.0 0.0 - 4.4 LAB CHEMISTRY METHOD 03/13/2025 11:[address] [facility] Blood Venous blood specimen / Unknown Venipuncture / Unknown 03/13/2025 9:03 AM EDT 03/13/2025 9:03 AM EDT us Khushboo Jeanie Huddlesotn MD LAB BLOOD ORDERABLES Final Res ult [facility] [address] [place] [address], [place] [phone] * Triiodothyronine free (03/13/2025 9:03 AM EDT) T3, Free 329 230 - 420 pcg/dL LAB CHEMISTRY METHOD 03/13/2025 12:[address] [facility] Blood Venous blood specimen / Unknown Venipuncture / Unknown 03/13/2025 9:03 AM EDT 03/13/2025 9:03 AM EDT us Khushboo Huddleston MD LAB BLOOD ORDERABLES Final Res ult [facility] [address] [place] [address], [place] [phone] * US Head Neck Soft Tissue (03/05/2025 11:43 AM EDT) Anatomical Region Laterality Modality Head and Neck Ultrasound 03/09/2025 12:0 2 PM EDT Impressions 03/09/2025 12:08 PM EDT There is a 1.2 x 0.7 x 1.1 cm TI-RADS 1 nodule in the mid to lower pole of the left lobe. Otherwise, normal examination of the thyroid gland. Code 71874 TI-RADS Category 1: 0 pts; benign; no follow-up TI-RADS Category 2: 2 pts; not suspicious; no FNA TI-RADS Category 3: 3 pts; mildly suspicious; < or = 1.5 cm f/u; > or = 2.5 FNA (f/u 1, 3 and 5 yr) TI-RADS Category 4: 4-6 pts; moderately suspicious; < or = 1.0 cm follow-up; 1.5 cm FNA, (f/u 1, 2, 3 and 5 yr) TI-RADS Category 5: 7 or > pts; highly suspicious; .5-.9 cm f/u; 1.0 cm or > FNA (f/u annually up to 5 yr) -------- FINAL REPORT -------- Dictated By: Dorian Garzon Dictated Date: 03/09/2025 12:02 ET Assigned Physician: Dorian Garzon Reviewed and Electronically Signed By: Dorian Garzon Signed Date: 03/09/2025 12:08 ET Workstation ID: [id number] Transcribed By: Self Edit Transcribed Date: 03/09/2025 12:02 ET Narrative 03/09/2025 12:08 PM EDT HISTORY: The patient is a 69-year-old female with clinical concern for a thyroid nodule on physical examination. FINDINGS: Real-time ultrasonography of the thyroid gland is performed. The thyroid is normal in echotexture and size, with the right lobe measuring 4.2 x 1.5 x 1.7 cm and the left lobe measuring 3.6 x 1.6 x 2.0 cm. The isthmus measures 3.9 mm in thickness. In the right lobe, no nodule or other focal abnormality is seen. In the left lobe, at the mid to lower pole, there is an oval, isoechoic spongiform mass measuring 1.2 x 0.7 x 1.1 cm. This is well-circumscribed and is wider than it is tall. This demonstrates no wall irregularity or calcifications and is classified as TI-RAD 1. Procedure Note Dorian Garzon MD - 03/09/2025 HISTORY: The patient is a 69-year-old female with clinical concern for athyroid nodule on physical examination. FINDINGS: Real-time ultrasonography of the thyroid gland is performed. Thethyroid is normal in echotexture and size, with the right lobe measuring4.2 x 1.5 x 1.7 cm and the left lobe measuring 3.6 x 1.6 x 2.0 cm. Theisthmus measures 3.9 mm in thickness. In the right lobe, no nodule or other focal abnormality is seen. In the left lobe, at the mid to lower pole, there is an oval, isoechoicspongiform mass measuring 1.2 x 0.7 x 1.1 cm. This is well-circumscribedand is wider than it is tall. This demonstrates no wall irregularity orcalcifications and is classified as TI-RAD 1. IMPRESSION: There is a 1.2 x 0.7 x 1.1 cm TI-RADS 1 nodule in the mid to lower pole ofthe left lobe. Otherwise, normal examination of the thyroid gland. Code 31123 TI-RADS Category 1: 0 pts; benign; no follow-up TI-RADS Category 2: 2 pts; not suspicious; no FNA TI-RADS Category 3: 3 pts; mildly suspicious; < or = 1.5 cm f/u; > or =2.5 FNA (f/u 1, 3 and 5 yr) TI-RADS Category 4: 4-6 pts; moderately suspicious; < or = 1.0 cmfollow-up; 1.5 cm FNA, (f/u 1, 2, 3 and 5 yr) TI-RADS Category 5: 7 or > pts; highly suspicious; .5-.9 cm f/u; 1.0 cmor > FNA (f/u annually up to 5 yr) -------- FINAL REPORT -------- Dictated By: Dorian Garzon Dictated Date: 03/09/2025 12:02 ET Assigned Physician: Dorian Garzon Reviewed and Electronically Signed By: Dorian Garzon Signed Date: 03/09/2025 12:08 ET Workstation ID: [id number] Transcribed By: Self Edit Transcribed Date: 03/09/2025 12:02 ET us Willow BLANCO IMG US PROCEDURES Final Res ult * Hepatitis C Screening (12/10/2023) Hepatitis C Screening abstracted us Historical Provider HEALTH MAINTENANCE Final Result * [facility] SCREENING DIGITAL (10/10/2023 5:20 PM EDT) Anatomical Region Laterality Modality Mammography 10/10/2023 10:2 1 AM EDT Narrative 10/10/2023 5:20 PM EDT Diagnostic Imaging Department [address] [place] [id number] Patient: SERGIO BRYANT D.O.B./Age/Sex: 1955 - - F Unit#: [id number] Location/Status: SPDIMAM/REG CLI Mnemonic/Ordering Site: [facility] Ordering Physician: KHUSHBOO HUDDLESTON MD [facility] Screening Digital - 10/10/23 - 1043 Report Status:Signed EXAM: [facility] Screening Digital EXAM DATE AND TIME: 10/10/2023 10:44 AM HISTORY: Screening. Right breast biopsy in 2012, pathology benign. Maternal aunt had breast carcinoma in her 70's. COMPARISON: 11/10/21, 08/10/17, 08/02/16 TECHNIQUE: Bilateral digital breast tomosynthesis was performed in the CC and MLO projections. Computer aided detection with [employer] 3D 3.1 was employed. TISSUE DENSITY: a. The breasts are almost entirely fatty. FINDINGS: No suspicious masses, grouped microcalcifications, or areas of architectural distortion are seen. A biopsy marker is again seen in the middle 9:00 position of the right breast. Vascular calcification is present. The skin is unremarkable. IMPRESSION: Stable mammographic appearance of the breasts. No evidence of malignancy is seen. A negative mammogram in the presence of a clinically suspicious palpable abnormality does not preclude the possibility of malignancy or alter the indications for biopsy. BI-RADS: Category 2: Benign RECOMMENDATION(S): 1: Routine screening mammogram BILATERAL in 1 year. Dictating Physician: RUBINA FINNEY MD Electronically Signed by: RUBINA FINNEY MD Dic Date/Time: 10/10/23 171 Sign date/Time: 10/10/23 172 Procedure Note Rubina Finney MD - 01/14/2024 Diagnostic Imaging Department [address] [place] [address] Patient: SERGIO BRYANT /Age/Sex: 1955 - 67 - F Unit#: [id number] Location/Status: SPDIMAM/REG CLI Mnemonic/Ordering Site: [facility] Ordering Physician: KHUSHBOO HUDLDESTON MD [facility] Screening Digital - 10/10/23 - 1043 Report Status:Signed EXAM: [facility] Screening Digital EXAM DATE AND TIME: 10/10/2023 10:44 AM HISTORY: Screening. Right breast biopsy in 2012, pathology benign.Maternal aunt had breast carcinoma in her 70's. COMPARISON: 11/10/21, 08/10/17, 08/02/16 TECHNIQUE: Bilateral digital breast tomosynthesis was performed in the CCand MLO projections. Computer aided detection with [employer] 3D 3.1was employed. TISSUE DENSITY: a. The breasts are almost entirely fatty. FINDINGS: No suspicious masses, grouped microcalcifications, or areas ofarchitectural distortion are seen. A biopsy marker is again seen in the middle 9:00position of the right breast. Vascular calcification is present. The skin is unremarkable. IMPRESSION: Stable mammographic appearance of the breasts. No evidence of malignancyis seen. A negative mammogram in the presence of a clinically suspicious palpable abnormality does not preclude the possibility of malignancy or alter the indications for biopsy. BI-RADS: Category 2: Benign RECOMMENDATION(S): 1: Routine screening mammogram BILATERAL in 1 year. Dictating Physician: RUBINA FINNEY MD Electronically Signed by: RUBINA FINNEY MD Dic Date/Time: 10/10/23 171 Sign date/Time: 10/10/23 172 Khushboo Huddleston MD IMG BI PROCEDURES Final Result from Last 3 Months or Most Recently Relevant to Health Maintenance Insurance [employer] Member Subscriber Plan / Payer ( fective 2023-Present) Name:Sergio Clarke Relation to Subscriber:Self Name:Sergio Bryant Payer ID:[id number] Group ID:[id number] Type:Not on file Address: [place] [address] [address] [phone] [facility] [employer] Member Subscriber Plan / Payer ( fective 2023-Present) Name:Tamika Clarken Relation to Subscriber:Self Name:Sergio Bryant Payer ID:[id number] Group ID:[id number] Type:Not on file Address: [place] [address] [address] [phone] Advance Directives Documents on File Type Date Recorded 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 Health Care Decision (hx) 11/25/2020 AD BROWN DIRECTIVE Health Care Decision (hx) 11/25/2020 AD BROWN DIRECTIVE Health Care Decision (hx) 11/25/2020 AD BROWN DIRECTIVE Health Care Decision (hx) 11/25/2020 AD BROWN DIRECTIVE Health Care Decision (hx) 11/25/2020 AD BROWN DIRECTIVE Health Care Decision (hx) 11/25/2020 AD BROWN DIRECTIVE Health Care Decision (hx) 11/25/2020 AD BROWN DIRECTIVE Health Care Decision (hx) 11/25/2020 AD BROWN DIRECTIVE Health Care Decision (hx) 11/25/2020 AD BROWN DIRECTIVE Care Teams Steam Cleaner Relationship Specialty Start Date End Date Khushboo Huddleston MD [address] [place] [phone] PCP - General Internal Medicine 04/22/24
--- OUTSIDE RECORDS SUMMARY | 2025-04-02 11:00 | XMS_ITS | Encounter Summary ---
Author Organization [facility] Address [address] [place] [address] Care Team Providers Care Central Supply Technician Supervisor Name Role Phone Ariella Huddleston MD Primary Care Provider [phone] Encounter Details Date Type Department Care Team ([facility] Contact Info) Description 03/13/2025 Results Follow-Up Internal Medicine [address] [phone] Ariella Huddleston MD [address] [place] [phone] Social History Tobacco Use Types Packs/Day Years Used Date Smoking Tobacco: Former Smokeless Tobacco: Never Alcohol Use Standard Drinks/Week [...] 12:30 PM EST Office Visit Internal Medicine [address] [phone] Ariella Huddleston MD [address] [place] [phone] 04/14/2025 11:15 AM EST Office Visit Pulmonology - [address] [phone] Marcelle Tello MD [address] [place] [phone] 05/04/2025 2:00 PM EST Office Visit [facility] Hematology Oncology [address] [place] [phone] Ivett Salinas PA [address] [place] [address] 07/03/2025 11:30 AM EST Office Visit Internal Medicine - [place] [address] [phone] Ariella Huddleston MD [address] [place] [phone] documented as of this encounter Visit Diagnoses Not on filedocumented in this encounter Additional Health Concerns Assessment Noted Time PHQ-9 Depression Total Score: 0 03/12/20 25 1:07 PM EDT documented as of this encounter Care Teams Central Supply Technician Supervisor Relationship Specialty Start Date End Date Ariella Huddleston MD [address] [phone] PCP - General Internal Medicine 04/22/24 documented as of this encounter
--- OUTSIDE RECORDS SUMMARY | 2025-04-02 11:00 | XMS_ITS | Encounter Summary ---
Author Organization [facility] Address [address] [place] [address] Care Team Providers Care Order Entry Administrator Name Role Phone Ariella Huddleston MD Primary Care Provider [phone] Encounter Details Date Type Department Care Team (Late Contact Info) Description 03/10/2025 Results Follow-Up [facility] - [address] [phone] Willow Luna PA [address] [place] [address] Social History Tobacco Use Types Packs/Day Years [...] PM EST Office Visit Internal Medicine - [place] [address] [phone] Ariella Huddleston MD [address] [place] [phone] 04/14/2025 11:15 AM EST Office Visit Pulmonology - [place] [address] [phone] Marcelle Tello MD [address] [place] [phone] 05/04/2025 2:00 PM EST Office Visit [facility] Hematology Oncology [address] [place] [phone] Ivett Salinas PA [address] [place] [address] 07/03/2025 11:30 AM EST Office Visit Internal Medicine [facility] [address] [phone] Ariella Huddleston MD [address] [place] [phone] documented as of this encounter Visit Diagnoses Not on filedocumented in this encounter Care Teams Order Entry Administrator Relationship Specialty Start Date End Date Ariella Huddleston MD [address] [phone] PCP - General Internal Medicine 04/22/24 documented as of this encounter
== END 2025-04-02 10:20 | disposition home or self-care (01) ==
LOC: HO.PMC 09:45
PROVIDERS: PCP Internal Medicine; Visit Provider Anesthesiology
DX: M25.562 Pain in left knee (principal); Z96.652 Presence of left artificial knee joint; M47.816 Spondylosis without myelopathy or radiculopathy, lumbar region; G89.4 Chronic pain syndrome; M17.11 Unilateral primary osteoarthritis, right knee; F11.90 Opioid use, unspecified, uncomplicated; G90.522 Complex regional pain syndrome I of left lower limb
CPT/HCPCS: 99213

== ENCOUNTER → 2025-04-02 09:44 | Outpatient (BNVA) | payer OTHER, SELFPAY | PROVIDERS: PCP Internal Medicine; Visit Provider Anesthesiology | DX: G89.4 Chronic pain syndrome (principal); G90.522 Complex regional pain syndrome I of left lower limb; M47.816 Spondylosis without myelopathy or radiculopathy, lumbar region; M25.562 Pain in left knee; M17.11 Unilateral primary osteoarthritis, right knee; Z96.652 Presence of left artificial knee joint; F11.90 Opioid use, unspecified, uncomplicated | CPT/HCPCS: 99212 ==